=== PATIENT | female | born 1950 | race Caucasian/White ===

== ENCOUNTER 2017-06-29 18:57 | Inpatient (IN) | payer MEDICARE ==
[2017-06-29] MEDS ORDERED: Temazepam CAP* 15 MG PO PRN (21:34)
[2017-06-29] MEDS ORDERED: Acetaminophen TAB* 325 MG PO PRN (21:34)
[2017-06-29] MEDS ORDERED: Heparin VIAL(*) 5000 UNITS/ML VIAL (FIVE THOUSAND) SUBCUT SCH (22:00)
[2017-06-29] MEDS: oxyCODONE/Acetamin 5/325 MG* TAB PO PRN (23:06)
[2017-06-29] MEDS ORDERED: Furosemide IV* 10 MG/ML VIAL (40 MG) IV ONE (23:43)
[2017-06-29] MEDS ORDERED: Heparin VIAL(*) 5000 UNITS/ML VIAL (FIVE THOUSAND) IV SCH (23:45)
[2017-06-29] MEDS ORDERED: Heparin DRIP 25,000 UNITS(*) 25,000 UNITS/500 ML BAG IVPB SCH (23:45)
[2017-06-30] LABS: Hematocrit 31 % (35-47); Hemoglobin 10.2 g/dl (12.0-16.0); Mean Corpuscular HGB Conc 33 g/dl (31-36); Mean Corpuscular Hemoglobin 31 pg (27-31); Mean Corpuscular Volume 92 fL (80-97); Mean Platelet Volume 8 um3 (7.4-10.4); Red Blood Count 3.33 10^6/ul (4.0-5.4); Red Cell Distribution Width 15 % (10.5-15); White Blood Count 5.2 10^3/ul (3.5-10.8)
[2017-06-30 00:09] LABS: BUN/Creatinine Ratio 11.5 (8-20); Calcium 9.4 mg/dL (8.6-10.3); EGFR African American 74.3 (>60); EGFR Non-African American 57.8 (>60); Potassium 3.5 mmol/L (3.5-5.0)
[2017-06-30 00:11] LABS: Troponin I 0.01 ng/mL (<0.04)
[2017-06-30 00:38] LABS: TSH (Thyroid Stimulating Horm) 1.09 mcIU/mL (0.34-5.60)
[2017-06-30] MEDS ORDERED: Iodixanol* (CONTRAST) 320 MG/ML 100 ML SDV IV ONE (01:26)
[2017-06-30 01:38] LABS: Magnesium 1.4 mg/dL (1.9-2.7)
[2017-06-30] MEDS ORDERED: Heparin VIAL(*) 5000 UNITS/ML VIAL (FIVE THOUSAND) IV SCH (03:00)
[2017-06-30] MEDS: Heparin DRIP 25,000 UNITS(*) 25,000 UNITS/500 ML BAG IVPB SCH ×2 (03:11→22:10)
--- NOTE | 2017-06-30 04:04 | HP ---
CC: Dr. Felix* HISTORY AND PHYSICAL: DATE OF ADMISSION: 06/29/17 PRIMARY CARE PROVIDER: Keily Felix MD CHIEF COMPLAINT: Transferred from [facility] for shortness of breath and atrial fibrillation. HISTORY OF PRESENT ILLNESS: Ms. Lawrence is a morbidly obese female with a history of lymphedema, who noted for the past 2 months, she gained approximately 100 pounds of fluid weight. She stated that she had not seen her doctor for that problem. She noted that usually she is short of breath when she is trying to ambulate and usually she is able to walk on few feet to the bathroom and back with the use of 2 canes. In the past month or so, it has been getting more and more difficult to do and she noted shortness of breath without exertion and at rest, worse when she lies down. When she was evaluated at [facility], she was noted to be in atrial fibrillation with controlled ventricular response and in congestive heart failure. She received a dose of Lasix at [facility] and she already stated that her breathing has improved dramatically. She was transferred to our facility for further cardiac evaluation and management. PAST MEDICAL HISTORY: 1. 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 2. Status post right total knee replacement. 3. History of mitral valve prolapse. 4. History of bilateral lymphedema as mentioned above. 5. History of morbid obesity. 6. History of being basically bedbound. MEDICATIONS: Include: 1. Triamterene hydrochlorothiazide 50/25 mg daily. 2. Ranitidine 150 mg daily. 3. Hydrocodone/acetaminophen 7.5/325 mg 1 tablet every 4 hours p.r.n. 4. Benadryl 25 mg on a p.r.n. basis. ALLERGIES: No known drug allergies. FAMILY HISTORY: Positive for father, who of old age in his 80s. Mother with history of blood clots, who in her 50s secondary to what I suspect was due to PE. The patient's one sister had history of breast cancer and uterine cancer and another sister had melanoma and COPD. SOCIAL HISTORY: The patient denies any tobacco, alcohol, or drug use. She is retired and lives by herself. Her in December of this year. Her ambulation is very limited and she walks a few steps with use of 2 canes. As her surrogate, she names her son, Vishnu Lawrence. REVIEW OF SYSTEMS: Please see history of present illness. All the remaining 14 systems were reviewed with the patient and were otherwise negative. PHYSICAL EXAMINATION GENERAL: The patient is a pleasant 66-year-old morbidly obese female with weight that she quoted of 450 pounds. At this point, she does not have her weight checked yet. The patient is in no acute distress. Alert, awake, and oriented x3. VITAL SIGNS: Blood pressure of 139/69, heart rate of 54 and irregular, respiratory rate of 18, oxygen saturation 97% on room air, and temperature of 98.5. HEENT: Head: Atraumatic and normocephalic. Eyes: Pupils are equal, round, and reactive to light and accommodation. Oropharynx clear. Mucosa moist. NECK: Supple. No JVD, no bruits bilaterally. RESPIRATORY: Decreased breath sounds at bilateral bases, otherwise clear. CARDIOVASCULAR: Irregularly irregular rhythm. No murmur. ABDOMEN: Protuberant, soft and nontender. Bowel sounds present in all 4 quadrants. EXTREMITIES: There is +3 pitting pedal edema and lymphedema. Pulses are +2 bilaterally. There is no clubbing or cyanosis. NEUROLOGIC: Speech clear. Cranial nerves II through XII grossly intact. Motor strength is 5/5 bilaterally. SKIN: On evaluation of the skin, dry with no rashes and ecchymotic areas noted. LABORATORY DATA: Obtained at [facility] showed white blood cell count of 5.1, hemoglobin of 10.2, hematocrit of 31, and platelets of 177. Sodium of 138, potassium 3.8, chloride 102, carbon dioxide 27, BUN 12, creatinine 1.1. Liver function tests were unremarkable apart from total protein of 8.3 and albumin of 3.5. Troponin was 0.012. Brain natriuretic peptide was 312. The patient's EKG showed atrial fibrillation with controlled ventricular rate of 62 with flattening of T waves. Portable chest x-ray seen prior to the official Radiology report shows vascular congestion and cardiomegaly. ASSESSMENT AND PLAN: 1. The patient's dyspnea is likely due to congestive heart failure, which also is likely related to atrial fibrillation. The patient's D-dimer was noted to be above 2000 at [facility] and due to that, CT angiogram is going to be obtained to rule out pulmonary embolism. The patient has a strong family history of problems with clots as her mother in her 50s due to "clot problem." 2. For her acute what I suspect is systolic congestive heart failure, the patient is going to be placed on Lasix b.i.d. as well as weights on a daily basis. I will also obtain echocardiogram to see the patient's EF and mitral valve. 3. In regards to atrial fibrillation. The patient has no history of heart disease. At this point, this is rate controlled and rather slow. Apart from diuresis as mentioned above, I will check patient's TSH in the morning as well as magnesium. We discussed the choices of anticoagulation and the patient stated that she has no coverage for medications outpatient and she chose to be placed on Coumadin. Due to her morbid obesity, I did not believe that Lovenox would be a safe alternative. She is going to be placed on heparin drip and Coumadin beginning tomorrow. I will ask Nutrition to see the patient in consultation in regards to being new Coumadin patient. 4. In regards to patient's lymphedema. This is chronic, worsened due to congestive heart failure. We will apply Sean bandages bilaterally on a daily basis. 5. For DVT prophylaxis, the patient is going to be placed on heparin drip as mentioned above. The patient is at high risk of deep venous thrombosis. 6. The patient's total protein is 8.3 and albumin is 3.5 and those were obtained [facility]. I will repeat those levels in the morning and if it indeed is correct that patient has essentially high protein level, it is possible that she has paraproteinemia and serum protein electrophoresis and urine protein electrophoresis may need to be obtained. 7. The patient's code status is full and her surrogate is her son, Vishnu. TIME SPENT: Approximately 65 minutes were spent on the admission of this patient, more than half that time was spent [id number] with the patient during the interview and physical exam. [id number]/[facility] #: [id number] MTDD
[2017-06-30] MEDS: oxyCODONE/Acetamin 5/325 MG* TAB PO PRN ×4 (04:47→20:35)
[2017-06-30 05:12] LABS: Hematocrit 30 % (35-47); Hemoglobin 10.1 g/dl (12.0-16.0); Mean Corpuscular HGB Conc 34 g/dl (31-36); Mean Corpuscular Hemoglobin 31 pg (27-31); Mean Corpuscular Volume 92 fL (80-97); Mean Platelet Volume 9 um3 (7.4-10.4); Red Blood Count 3.28 10^6/ul (4.0-5.4); Red Cell Distribution Width 15 % (10.5-15); White Blood Count 5.5 10^3/ul (3.5-10.8)
[2017-06-30 05:28] LABS: Albumin 3.4 g/dL (3.2-5.2); BUN/Creatinine Ratio 10.1 (8-20); Calcium 9.2 mg/dL (8.6-10.3); EGFR African American 64.2 (>60); EGFR Non-African American 49.9 (>60); Potassium 3.5 mmol/L (3.5-5.0); Total Bilirubin 0.9 mg/dL (0.2-1.0); Total Protein 7.4 g/dL (6.4-8.9)
[2017-06-30] MEDS ORDERED: Furosemide IV* 10 MG/ML 10 ML VIAL (100 MG) IV SCH (08:00)
[2017-06-30] MEDS: Docusate CAP* 100 MG PO SCH ×2 (08:33→20:36)
--- NOTE | 2017-06-30 08:53 | RAD ---
Indication: Shortness of breath. Possible CHF. New onset A. fib. Comparison: Subsequent CT pulmonary angiogram. Technique: Upright AP 2213 hours Report: Obesity limits image quality. Severe cardiomegaly. Prominent ill-defined central pulmonary vasculature with cephalization. Mild perihilar opacities and prominence of the interstitial markings. Based on correlation with CT there are small RIGHT and trace LEFT dependent pleural effusions. Negative for pneumothorax. IMPRESSION: Mild alveolar and interstitial pulmonary edema.
--- NOTE | 2017-06-30 10:06 | RAD ---
INDICATION: New onset atrial fibrillation and shortness of breath. Assess for pulmonary embolism. COMPARISON: June 29, 2017 chest radiograph. TECHNIQUE: Multidetector CT images were obtained from the lung apices to the upper abdomen with 150 mL Visipaque 320 IV contrast. Pulmonary angiogram protocol. Multiplanar reformation including with maximum intensity projection. REPORT: Small RIGHT and trace LEFT dependent pleural effusions with proportional atelectasis. Cardiomegaly contributes to atelectasis at the lung bases. Negative for pneumothorax. Severe cardiomegaly. Negative for pericardial effusion. Normal diameter thoracic aorta with mild atherosclerotic plaque. Negative for aortic dissection. Negative for thoracic lymphadenopathy. Assessment of the pulmonary arteries is mildly limited due to motion artifact and obesity. No compelling filling defects are identified from the main to the subsegmental pulmonary arteries to indicate presence of a pulmonary embolism. Unremarkable Limited images through the upper abdomen. Negative for suspicious osseous lesions. IMPRESSION: 1. Negative for pulmonary embolism. 2. Small RIGHT and trace LEFT dependent pleural effusions with proportional atelectasis. Cardiomegaly contributes to atelectasis at the lung bases. 3. Probable mild interstitial pulmonary edema.
--- NOTE | 2017-06-30 14:01 | PN ---
Subjective Date of Service: 06/30/17 Interval History: Patient seen this morning. Reviewed course leading up to hospitalization. Has had issues with lymphedema for years. Feels that she goes in "cycles" where she will build up fluid and then have a number of days she is urinating frequently/ urgently with improvement in the edema but seems to put on slightly more fluid each cycle. Has not seen her PCP in a few years. Reports she is running low on her home diuretics and has been unable to get a refill because she has not been able to go to her PCP due to mobility issues, she has been rationing the doses of her medications that are left. Has been mostly home-bound. Reports breathing is improved at this time. Explained the AFib and that this could have been ongoing for some time. Understands plans for AC. Family History: Unchanged from Admission Social History: Unchanged from Admission Past Medical History: Unchanged from Admission Objective Active Medications: Acetaminophen (Tylenol Tab*) 650 mg PO Q4H PRN Docusate Sodium (Colace Cap*) 100 mg PO BID YOEL Furosemide (Lasix Iv*) 60 mg IV 0800,1700 [facility] Heparin Sodium (Porcine) (Heparin Vial(*)) 0 units IV .PER PROTOCOL [facility] Heparin Sodium/Dextrose (Heparin Drip 25,000 Units(*)) 25,000 units in 500 mls @ 0 mls/hr IVPB .PER RATE [facility]; Per Protocol Oxycodone/Acetaminophen (Percocet 5/325 Tab*) 1 tab PO Q4H PRN Temazepam (Restoril Cap*) 15 mg PO BEDTIME PRN Warfarin Sodium (Coumadin Tab(*)) 5 mg PO DAILY@1700 [facility] Vital Signs 06/29/17 06/29/17 06/30/17 21:12 23:06 00:05 Temperature 98.5 F 98.3 F Pulse Rate 54 51 Respiratory 18 16 16 Rate Blood Pressure 139/69 138/63 (mmHg) O2 Sat by Pulse 97 98 Oximetry 06/30/17 06/30/17 06/30/17 01:06 03:41 04:47 Temperature 98.5 F Pulse Rate 62 Respiratory 16 22 18 Rate Blood Pressure 128/69 (mmHg) O2 Sat by Pulse 100 Oximetry 06/30/17 06/30/17 06/30/17 06:47 07:36 10:44 Temperature 98.4 F Pulse Rate 51 Respiratory 16 20 16 Rate Blood Pressure 129/63 (mmHg) O2 Sat by Pulse 99 Oximetry 06/30/17 06/30/17 12:00 12:44 Temperature 98.1 F Pulse Rate 66 Respiratory 20 20 Rate Blood Pressure 131/62 (mmHg) O2 Sat by Pulse 99 Oximetry Oxygen Devices in Use Now: Nasal Cannula Appearance: Elderly, F, laying in bed in NAD Eyes: No Scleral Icterus Ears/Nose/Mouth/Throat: Mucous Membranes Moist Neck: NL Appearance and Movements; NL JVP Respiratory: Symmetrical Chest Expansion and Respiratory Effort, - - Absent in bases, mild rales in RLL field Cardiovascular: - - IRIR, bradycardia Abdominal: NL Sounds; No Tenderness; No Distention Lymphatic: No Cervical Adenopathy Extremities: - - B/L LE non-pitting edema, KAMINI wraps in place Neurological: Alert and Oriented x 3 Result Diagrams: 06/30/17 04:38 06/30/17 04:38 Assess/Plan/Problems-Billing Assessment: New onset AFib, likely acute on chronic CHF exacerbation in a 66 yo F with hx of morbid obesity, chronic lymphedema, mitral valve prolapse - Patient Problems (1) Atrial fibrillation Current Visit: Yes Comment: Rate is controlled off of medications. Continue Coumadin. No PE on CTA, will get LE dopplers as D-dimer was significantly elevated. If no clear clot can probably stop heaprin bridge. Echo pending. TSH WNL (2) Acute on chronic congestive heart failure Current Visit: Yes Comment: Suspect some element of cardiac dysfunction causing edema on top of chronic lymphedema issues. Patient has had significant response to IV Lasix, will hold evening dose. Continue strict I/O with guan in place for now, daily weights. (3) Lymphedema Current Visit: Yes Comment: KAMINI wraps, elevation (4) DVT prophylaxis Current Visit: Yes Comment: Heparin Status and Disposition: Inpatient
[2017-06-30] MEDS ORDERED: Warfarin TAB(*) 5 MG PO SCH (17:00)
--- NOTE | 2017-06-30 19:29 | RAD ---
INDICATION: Elevated d-dimer. Lower extremity edema. COMPARISON: No relevant prior exams available on the [facility] [place]. TECHNIQUE: Belcher scale, color Doppler, and spectral analysis of the deep veins of the BILATERAL lower extremities. Vessel compression, phasicity, and augmentation assessed. REPORT: Visualization of the distal segments of the femoral veins as well as the posterior tibial and peroneal veins is limited due to morbid obesity and soft tissue edema. The RIGHT common femoral, great saphenous, profunda femoral, femoral, popliteal popliteal veins are grossly patent. Color flow Doppler demonstrated at the posterior tibial and peroneal veins. Preserved pulsatility documented at the RIGHT posterior tibial veins. The LEFT common femoral, great saphenous, profunda femoral, femoral, and popliteal veins are grossly patent. Color flow Doppler demonstrated at the posterior tibial and peroneal veins. Preserved pulsatility documented at a LEFT posterior tibial vein. IMPRESSION: Limited exam due to morbid obesity and soft tissue edema without compelling evidence for RIGHT or LEFT lower extremity DVT.
[2017-07-01] MEDS: oxyCODONE/Acetamin 5/325 MG* TAB PO PRN ×2 (02:50→08:53)
[2017-07-01 04:02] LABS: Hematocrit 29 % (35-47); Hemoglobin 9.9 g/dl (12.0-16.0); Mean Corpuscular HGB Conc 34 g/dl (31-36); Mean Corpuscular Hemoglobin 31 pg (27-31); Mean Corpuscular Volume 92 fL (80-97); Mean Platelet Volume 8 um3 (7.4-10.4); Red Cell Distribution Width 15 % (10.5-15); White Blood Count 5.4 10^3/ul (3.5-10.8)
[2017-07-01 04:18] LABS: BUN/Creatinine Ratio 10.7 (8-20); Calcium 8.9 mg/dL (8.6-10.3); EGFR African American 68.5 (>60); EGFR Non-African American 53.3 (>60); Magnesium 1.8 mg/dL (1.9-2.7); Potassium 3.3 mmol/L (3.5-5.0)
[2017-07-01] MEDS ORDERED: Magnesium Sulfate 2 GM IV* 2 GM/50 ML BAG IVPB ONE (07:30)
[2017-07-01] MEDS: Docusate CAP* 100 MG PO SCH ×2 (08:43→20:42)
[2017-07-01] MEDS: Potassium Chlor TAB* 20 MEQ TAB.ER PO SCH ×2 (08:52→10:19)
[2017-07-01] MEDS: Furosemide IV* 10 MG/ML 10 ML VIAL (100 MG) IV SCH (08:55)
--- NOTE | 2017-07-01 09:19 | PN ---
Subjective Date of Service: 07/01/17 Interval History: Patient seen this morning. Reports weight loss, legs not feeling much different today. Down 5 kg. Still with orthopnea. No chest pain, palpitations. Reports occasional tingling in B/L fingers, may be related to her cane use as an outpatient. Family History: Unchanged from Admission Social History: Unchanged from Admission Past Medical History: Unchanged from Admission Objective Active Medications: Acetaminophen (Tylenol Tab*) 650 mg PO Q4H PRN PRN Reason: FEVER/PAIN Docusate Sodium (Colace Cap*) 100 mg PO BID [facility] Last Admin: 07/01/17 08:43 Dose: Not Given Furosemide (Lasix Iv*) 60 mg IV DAILY [facility] Last Admin: 07/01/17 08:55 Dose: 60 mg Oxycodone/Acetaminophen (Percocet 5/325 Tab*) 1 tab PO Q4H PRN PRN Reason: Pain Last Admin: 07/01/17 08:53 Dose: 1 tab Pharmacy Profile Note (Coumadin Per Pharmacy*) 1 note FOLLOW UP .PER PHARMACY PROTOC [facility] PRN Reason: Protocol Potassium Chloride (Klor Con Er Tab*) 40 meq PO Q2H [facility] Stop: 07/01/17 10:01 Last Admin: 07/01/17 08:52 Dose: 40 meq Temazepam (Restoril Cap*) 15 mg PO BEDTIME PRN PRN Reason: INSOMNIA Vital Signs 06/30/17 06/30/17 06/30/17 10:44 12:00 12:44 Temperature 98.1 F Pulse Rate 66 Respiratory 16 20 20 Rate Blood Pressure 131/62 (mmHg) O2 Sat by Pulse 99 Oximetry 07/01/17 07/01/17 07/01/17 03:42 04:50 06:43 Temperature 97.1 F Pulse Rate 52 Respiratory 18 18 18 Rate Blood Pressure 126/85 (mmHg) O2 Sat by Pulse 100 Oximetry Oxygen Devices in Use Now: Nasal Cannula - 2L Appearance: Middle-aged, morbidly obese, F, laying in bed in NAD Eyes: No Scleral Icterus Ears/Nose/Mouth/Throat: Mucous Membranes Moist Neck: NL Appearance and Movements; NL JVP Respiratory: Symmetrical Chest Expansion and Respiratory Effort, - - Rales in B/ L bases Cardiovascular: - - Bradycardia, IRIR Abdominal: - - Obese, soft, NTND, BS+ Extremities: - - Diffuse lymphedema Neurological: Alert and Oriented x 3 Lines/Tubes/Other Access: Clean, Dry and Intact Guan Result Diagrams: 07/01/17 03:45 07/01/17 03:45 Assess/Plan/Problems-Billing Assessment: New onset AFib, likely acute on chronic CHF exacerbation in a 66 yo F with hx of morbid obesity, chronic lymphedema, mitral valve prolapse - Patient Problems (1) Atrial fibrillation Current Visit: Yes Comment: Rate is slow off of medications, continue to monitor on tele. Continue Coumadin alone, no need for heparin bridge. Echo pending. TSH WNL (2) Acute on chronic congestive heart failure Current Visit: Yes Comment: Suspect some element of cardiac dysfunction causing edema on top of chronic lymphedema issues. Patient has had significant response to IV Lasix, redose today 60 mg IV. Continue strict I/O with guan in place for now, daily weights. (3) Lymphedema Current Visit: Yes Comment: KAMINI wraps, elevation (4) DVT prophylaxis Current Visit: Yes Comment: Heparin Status and Disposition: Inpatient
[2017-07-01] MEDS: Heparin VIAL(*) 5000 UNITS/ML VIAL (FIVE THOUSAND) SUBCUT SCH ×2 (13:39→20:42)
[2017-07-01] MEDS: HYDROcodone/ACET. 7.5/325 LIQ* 15 ML UDC PO PRN ×3 (13:56→22:45)
[2017-07-01] MEDS ORDERED: Warfarin TAB(*) 5 MG PO ONE (17:00)
[2017-07-02] MEDS: HYDROcodone/ACET. 7.5/325 LIQ* 15 ML UDC PO PRN ×5 (04:04→23:58)
[2017-07-02] MEDS: Heparin VIAL(*) 5000 UNITS/ML VIAL (FIVE THOUSAND) SUBCUT SCH ×3 (05:22→20:31)
[2017-07-02 05:36] LABS: BUN/Creatinine Ratio 10.5 (8-20); Calcium 8.7 mg/dL (8.6-10.3); EGFR Non-African American 47.4 (>60); Potassium 3.8 mmol/L (3.5-5.0)
[2017-07-02] MEDS ORDERED: Perflutren Lipid Microsphere* 3 ML VIAL ONE (08:04)
[2017-07-02] MEDS: Furosemide IV* 10 MG/ML 10 ML VIAL (100 MG) IV SCH (08:29)
[2017-07-02] MEDS: Docusate CAP* 100 MG PO SCH ×2 (08:29→20:31)
--- NOTE | 2017-07-02 09:36 | ECHO ---
Patient: LIDIA WERNER Rec#: [id number] : 1950 Date: 07/02/2017 Age: 66y Height: 160.02 cm / 63.0 in Weight: 172.37 kg / 379.9 lbs Sex: F BSA: 2.54 Room#: 434 Admit Date#: 06/29/2017 Type: Inpatient Referring: Betsy Lao MD Reading: Claudio Fowler MD Digital Research Analyst: Esha Tse RDCS,RDMS CC: Keily Felix MD Transthoracic Echocardiogram Indication: Afib BP: 138/57 HR: 53 Rhythm: A-Fib Findings History: MV prolapse, bilateral lymphedema, morbid obesity Technical Comments: The study is technically limited due to poor acoustic windows. Completed 0845 Left Ventricle: The left ventricular chamber size is normal. Mild concentric left ventricular hypertrophy is observed. Global left ventricular wall motion and contractility are within normal limits. There is normal left ventricular systolic function. The estimated ejection fraction is 55-60%. The assessment of diastolic function is non-diagnostic. Left Atrium: The left atrium is moderately dilated. Right Ventricle: The right ventricular chamber size and systolic function are within normal limits. The right ventricle wall thickness is mildly increased. Right Atrium: The right atrium is mild to moderately dilated. Aortic Valve: There is no evidence of aortic valve thickening. There is no evidence of aortic regurgitation. There is no evidence of aortic stenosis. Mitral Valve: The mitral valve leaflets are mildly thickened. There is a trace of mitral regurgitation. There is no evidence of mitral stenosis. Tricuspid Valve: The tricuspid valve leaflets are normal. There is mild tricuspid regurgitation. No pulmonary hypertension is noted. Pulmonic Valve: The pulmonic valve structure is not well visualized. There is no evidence of pulmonic regurgitation. Pericardium: A trivial pericardial effusion is visualized. The pericardial effusion is seen adjacent to the right atrium. Aorta: The aortic root appears normal. There is no dilatation of the aortic arch. Pulmonary Artery: The main pulmonary artery is not well visualized. Venous: The inferior vena cava is dilated. There is less than 50% respiratory change in the inferior vena cava dimension. Contrast: Definity was used to optimize study. A total of 4 ml was used Conclusions Mild concentric left ventricular hypertrophy is observed. Global left ventricular wall motion and contractility are within normal limits. There is normal left ventricular systolic function. The estimated ejection fraction is 55-60%. The right ventricular chamber size and systolic function are within normal limits. There is no evidence of aortic stenosis. There is a trace of mitral regurgitation. There is mild tricuspid regurgitation. No pulmonary hypertension is noted. A trivial pericardial effusion is visualized. Measurements Name Value Normal Range RVIDd (AP) 2D 2.6 cm (0.9 - 2.6) IVSd (2D) 1.1 cm (0.6 - 1) LVPWd (2D) 1.1 cm (0.6 - 1) LVIDd (2D) 4.7 cm (3.6 - 5.4) LVIDs (2D) 2.7 cm - LV FS (2D) 43 % (25 - 45) Aortic Annulus 2 cm (1.4 - 2.6) Ao root diameter (2D) 3.4 cm (2.1 - 3.5) Ascending Ao 3.1 cm (2.1 - 3.4) Aortic arch 3 cm (1.8 - 3.4) LA dimension (AP) 2D 4 cm (2.3 - 3.8) LAd ISD 4CH 7.8 cm (2.9 - 5.3) LA ISD 4CH W 5 cm (2.5 - 4.5) Name Value Normal Range LA ESV SP 4CH (A/L) 86.18 ml - LA ESV SP 2CH (A/L) 90.54 ml - LA ESV BP (A/L) 91.31 ml - LA ESV BP (A/L) index 36 ml/m2 - LA ESV SP 4CH (MOD) 80.8 ml - LA ESV SP 2CH (MOD) 86.61 ml - Name Value Normal Range MV E-wave Vmax 1.4 m/sec - MV deceleration time 207 msec - LV lateral e' Vmax 0.08 m/sec - LV E:e' lateral ratio 18 ratio - Name Value Normal Range AV Vmax 1.6 m/sec - AV peak gradient 10 mmHg - LVOT Vmax 1.2 m/sec - LVOT peak gradient 6 mmHg - [place] Vmax 0.9 m/sec - Name Value Normal Range MV Vmax 1.5 m/sec - MV VTI 34 cm - MV peak gradient 9 mmHg - MV mean gradient 3 mmHg - MV PHT 75 msec - MVA (PHT) 2.9 cm2 - Name Value Normal Range TR Vmax 2.3 m/sec - TR peak gradient 22 mmHg - RAP 8 mmHg - RVSP 30 mmHg - IVC diameter 3.1 cm - Name Value Normal Range PV Vmax 0.8 m/sec - PV peak gradient 2.6 mmHg -
--- NOTE | 2017-07-02 14:23 | PN ---
Subjective Date of Service: 07/02/17 Interval History: Pt states she is feeling poorly currently due to pain in her hip, legs and back. She states she is not SOB at rest as long as she is not lying flat. She feels she is dropping fluid weight quickly currently but she says that her fluid will come back quickly. She has not had a BM but does not want a laxative as she does not think she can get to a commode quick enough. Additionally she does not want the guan out due to her limited mobility. Family History: Unchanged from Admission Social History: Unchanged from Admission Past Medical History: Unchanged from Admission Objective Active Medications: Acetaminophen (Tylenol Tab*) 650 mg PO Q4H PRN PRN Reason: FEVER/PAIN Hydrocodone Bitart/Acetaminophen (Nortab 7.5/325 Liq*) 5 ml PO Q4H PRN PRN Reason: PAIN Last Admin: 07/02/17 14:09 Dose: 5 ml Docusate Sodium (Colace Cap*) 100 mg PO BID [facility] Last Admin: 07/02/17 08:29 Dose: 100 mg Furosemide (Lasix Iv*) 60 mg IV DAILY [facility] Last Admin: 07/02/17 08:29 Dose: 60 mg Heparin Sodium (Porcine) (Heparin Vial(*)) 5,000 units SUBCUT Q8HR [facility] Last Admin: 07/02/17 14:10 Dose: 5,000 units Pharmacy Profile Note (Coumadin Per Pharmacy*) 1 note FOLLOW UP .PER PHARMACY PROTOC YOEL PRN Reason: Protocol Temazepam (Restoril Cap*) 15 mg PO BEDTIME PRN PRN Reason: INSOMNIA Warfarin Sodium (Coumadin Tab(*)) 4 mg PO 1700 ONE Stop: 07/02/17 17:01 Warfarin Sodium (Coumadin Tab(*)) 2 mg PO 1700 ONE Stop: 07/02/17 17:01 Vital Signs 07/01/17 07/01/17 07/01/17 15:43 15:56 17:35 Temperature 98.0 F Pulse Rate 65 Respiratory 20 18 18 Rate Blood Pressure 108/76 (mmHg) O2 Sat by Pulse 99 Oximetry 07/01/17 07/01/17 07/01/17 19:35 19:48 20:00 Temperature 98.7 F Pulse Rate 65 Respiratory 18 20 Rate Blood Pressure 116/51 (mmHg) O2 Sat by Pulse 99 Oximetry 07/01/17 07/02/17 07/02/17 22:45 00:12 00:45 Temperature 98.6 F Pulse Rate 68 Respiratory 18 18 18 Rate Blood Pressure 116/61 (mmHg) O2 Sat by Pulse 99 Oximetry 07/02/17 07/02/17 07/02/17 04:02 04:04 06:04 Temperature 98.8 F Pulse Rate 59 Respiratory 18 18 18 Rate Blood Pressure 138/57 (mmHg) O2 Sat by Pulse 100 Oximetry 07/02/17 07/02/17 07/02/17 07:05 07:37 08:29 Temperature 97.6 F Pulse Rate 60 Respiratory 16 20 16 Rate Blood Pressure 116/55 (mmHg) O2 Sat by Pulse 100 Oximetry 07/02/17 07/02/17 07/02/17 10:29 11:06 14:09 Temperature 98.9 F Pulse Rate 62 Respiratory 16 20 18 Rate Blood Pressure 112/57 (mmHg) O2 Sat by Pulse 96 Oximetry Oxygen Devices in Use Now: Nasal Cannula - 2L-96% Appearance: Morbidly obese middle aged female sitting up in bed, NAD Eyes: No Scleral Icterus Ears/Nose/Mouth/Throat: Mucous Membranes Moist Respiratory: Symmetrical Chest Expansion and Respiratory Effort, Clear to Auscultation Cardiovascular: NL Sounds; No Murmurs; No JVD, RRR, - - marked LE edema/ lymphedema Abdominal: NL Sounds; No Tenderness; No Distention Extremities: No Clubbing, Cyanosis Skin: No Rash or Ulcers, No Nodules or Sclerosis Neurological: Alert and Oriented x 3 Result Diagrams: 07/01/17 03:45 07/02/17 04:56 Assess/Plan/Problems-Billing Ms Rdz is a 66 yo F with a hx of morbid obesity, chronic lymphedema and mitral valve prolapse who presented to [facility] with c/o SOB and fluid gain and was found to be in afib and likely CHF and she was then sent to [facility] for further evaluation. - Patient Problems (1) Acute on chronic congestive heart failure Current Visit: Yes Status: Acute Code(s): I50.9 - HEART FAILURE, UNSPECIFIED SNOMED Code(s): 73328170 Comment: Likely acute on chronic diastolic CHF in the setting of underlying lymphedema. The patient has lost 18lb since admission. She will get lasix 60mg IV x1 today. Continue to follow I/Os. Repeat BMP tomorrow. She will need to have the guan removed soon though the patient states she does not want it out until she can move better but she refuses to work with PT to try to get out of bed. I am overall concerned about the patient's ability to go home safely. Will continue to try to encourage STR. If she is truly unsafe when/if she works with PT and she continues to refuse STR a capacity eval may be necessary. (2) Atrial fibrillation Current Visit: Yes Status: Acute Code(s): I48.91 - UNSPECIFIED ATRIAL FIBRILLATION SNOMED Code(s): 37350531 Comment: Rate is controlled off of medications. Continue to monitor on tele. Continue Coumadin-pharmacy is dosing but her INR is not yet climbing. (3) Anemia Current Visit: Yes Status: Acute Code(s): D64.9 - ANEMIA, UNSPECIFIED SNOMED Code(s): 237683812 Comment: Unclear the cause. Check iron, B12 levels. Check stool guaiac. (4) Lymphedema Current Visit: Yes Status: Acute Code(s): I89.0 - LYMPHEDEMA, NOT ELSEWHERE CLASSIFIED SNOMED Code(s): 187527917 Comment: Continue KAMINI wraps and elevation. (5) DVT prophylaxis Current Visit: Yes Status: Acute Code(s): SYG7502 - SNOMED Code(s): 562150557 Comment: SQ Heparin bridging to coumadin (6) Full code status Current Visit: Yes Status: Acute Code(s): Z78.9 - OTHER SPECIFIED HEALTH STATUS SNOMED Code(s): 313269595 Status and Disposition: Inpatient
[2017-07-02] MEDS ORDERED: Influenza VAC *QUAD* 2017-18* 0.5 ML SYRINGE IM ONE (17:00)
[2017-07-02] MEDS ORDERED: Warfarin TAB(*) 4 MG PO ONE (17:00)
[2017-07-02] MEDS ORDERED: Warfarin TAB(*) 2 MG PO ONE (17:00)
[2017-07-03] MEDS: Heparin VIAL(*) 5000 UNITS/ML VIAL (FIVE THOUSAND) SUBCUT SCH ×3 (04:51→20:04)
[2017-07-03 05:26] LABS: Ferritin 60.6 ng/mL (11-307)
[2017-07-03] MEDS: HYDROcodone/ACET. 7.5/325 LIQ* 15 ML UDC PO PRN ×5 (06:25→23:43)
[2017-07-03 08:09] LABS: Hematocrit 32 % (35-47); Hemoglobin 10.4 g/dl (12.0-16.0); Mean Corpuscular HGB Conc 33 g/dl (31-36); Mean Corpuscular Hemoglobin 30 pg (27-31); Mean Corpuscular Volume 92 fL (80-97); Mean Platelet Volume 9 um3 (7.4-10.4); Red Blood Count 3.42 10^6/ul (4.0-5.4); Red Cell Distribution Width 15 % (10.5-15); White Blood Count 6.9 10^3/ul (3.5-10.8)
[2017-07-03 08:13] LABS: BUN/Creatinine Ratio 14.3 (8-20); Calcium 9.1 mg/dL (8.6-10.3); EGFR Non-African American 52.1 (>60)
[2017-07-03] MEDS: Docusate CAP* 100 MG PO SCH ×2 (09:02→20:04)
[2017-07-03] MEDS: Furosemide IV* 10 MG/ML 10 ML VIAL (100 MG) IV SCH (09:02)
[2017-07-03] MEDS ORDERED: oxyCODONE TAB* 5 MG TAB PO ONE (14:45)
--- NOTE | 2017-07-03 15:42 | PN ---
Subjective Date of Service: 07/03/17 Interval History: Patient seen and examined at bedside. Patient reports continued pain and has not gotten out of bed because we do not have the proper chair or commode that works for her. She c/o of pain from lying in bed but also from her leg swelling. She states she can lose 60 pounds in two days. She says she has a lower chair at home and a lower bed which would allow her to be able to move by herself. Family History: Unchanged from Admission Social History: Unchanged from Admission Past Medical History: Unchanged from Admission Objective Active Medications: Acetaminophen (Tylenol Tab*) 650 mg PO Q4H PRN Hydrocodone Bitart/Acetaminophen (Nortab 7.5/325 Liq*) 5 ml PO Q4H PRN Docusate Sodium (Colace Cap*) 100 mg PO BID YO[facility] Furosemide (Lasix Iv*) 60 mg IV DAILY Y[facility] Heparin Sodium (Porcine) (Heparin Vial(*)) 5,000 units SUBCUT Q8HR [facility] Pharmacy Profile Note (Coumadin Per Pharmacy*) 1 note FOLLOW UP .PER PHARMACY PROTOC YOEL Temazepam (Restoril Cap*) 15 mg PO BEDTIME PRN Warfarin Sodium (Coumadin Tab(*)) 8 mg PO 1700 ONE 07/03/17 07/03/17 07/03/17 06:25 07:44 08:25 Temperature 97.6 F Pulse Rate 67 Respiratory 18 20 16 Rate Blood Pressure 125/69 (mmHg) O2 Sat by Pulse 100 Oximetry Oxygen Devices in Use Now: Nasal Cannula - 2L-96% Appearance: sitting up in bed, NAD Eyes: No Scleral Icterus, PERRLA Ears/Nose/Mouth/Throat: NL Teeth, Lips, Gums Neck: NL Appearance and Movements; NL JVP Respiratory: Symmetrical Chest Expansion and Respiratory Effort, Clear to Auscultation Cardiovascular: NL Sounds; No Murmurs; No JVD Abdominal: NL Sounds; No Tenderness; No Distention Extremities: - - Marked LE edema Neurological: Alert and Oriented x 3, NL Muscle Strength and Tone Lines/Tubes/Other Access: Clean, Dry and Intact Peripheral IV Nutrition: Taking PO's Result Diagrams: 07/03/17 07:08 07/03/17 07:08 Assess/Plan/Problems-Billing Ms Rdz is a 66 yo F with a hx of morbid obesity, chronic lymphedema and mitral valve prolapse who presented to [facility] with c/o SOB and fluid gain and was found to be in afib and likely CHF and she was then sent to [facility] for further evaluation. - Patient Problems (1) Acute on chronic congestive heart failure Comment: Likely acute on chronic diastolic CHF in the setting of underlying lymphedema. The patient has lost 18lb since admission. Redose Lasix today and follow I/Os. Repeat BMP tomorrow. Patient continues to refuse to work with PT and get out of bed. She has agreed to try again with a bariatric chair. Discussed with her that STR is likely as she has been in bed for multiple days. If she is truly unsafe when/if she works with PT and she continues to refuse STR a capacity eval may be necessary. (2) Lymphedema Comment: Continue KAMINI wraps and elevation. (3) Atrial fibrillation Comment: Rate is controlled off of medications. Continue to monitor on tele. Continue Coumadin per pharmacy. Discontinue telemetry. (4) Anemia Comment: Unclear the cause. Low iron levels and iron saturation. B12 normal. Start iron supplements. (5) DVT prophylaxis Comment: SQ Heparin bridging to coumadin (6) Full code status Status and Disposition: Inpatient. Will likely need STR before going home. Must mobilize with PT first.
[2017-07-03] MEDS ORDERED: Glycerin ADULT SUPP PR ONE (16:01)
[2017-07-03] MEDS ORDERED: Warfarin TAB(*) 4 MG PO ONE (17:00)
[2017-07-04] MEDS: HYDROcodone/ACET. 7.5/325 LIQ* 15 ML UDC PO PRN ×3 (03:50→20:39)
[2017-07-04] MEDS: Heparin VIAL(*) 5000 UNITS/ML VIAL (FIVE THOUSAND) SUBCUT SCH ×3 (05:13→22:17)
[2017-07-04 06:08] LABS: BUN/Creatinine Ratio 16.7 (8-20); Calcium 9.2 mg/dL (8.6-10.3); EGFR African American 64.9 (>60); EGFR Non-African American 50.5 (>60)
[2017-07-04] MEDS: Ferrous Gluconate TAB* 324 MG TAB PO SCH (08:33)
[2017-07-04] MEDS: Docusate CAP* 100 MG PO SCH ×2 (08:33→20:41)
[2017-07-04] MEDS: Furosemide IV* 10 MG/ML 10 ML VIAL (100 MG) IV SCH (08:33)
[2017-07-04] MEDS ORDERED: oxyCODONE TAB* 5 MG TAB PO ONE (09:11)
--- NOTE | 2017-07-04 09:18 | PN ---
Subjective Date of Service: 07/04/17 Interval History: Patient seen and examined at bedside. Patient reports neck pain. States her breathing is improved. Had BM yesterday. Still did not get out of bed yet. She states she wants to go home. She is willing to try to get up with the cardiac chair. Family History: Unchanged from Admission Social History: Unchanged from Admission Past Medical History: Unchanged from Admission Objective Active Medications: Acetaminophen (Tylenol Tab*) 650 mg PO Q4H PRN Hydrocodone Bitart/Acetaminophen (Nortab 7.5/325 Liq*) 5 ml PO Q4H PRN Docusate Sodium (Colace Cap*) 100 mg PO BID [facility] Ferrous Gluconate (Fergon Tab*) 324 mg PO DAILY [facility] Furosemide (Lasix Iv*) 60 mg IV DAILY [facility] Heparin Sodium (Porcine) (Heparin Vial(*)) 5,000 units SUBCUT Q8HR [facility] Lidocaine (Lidoderm 5% Patch*) 1 patch TRANSDERM DAILY [facility] Oxycodone HCl (Roxycodone Tab*) 10 mg PO ONCE ONE Pharmacy Profile Note (Coumadin Per Pharmacy*) 1 note FOLLOW UP .PER PHARMACY PROTOC Y[facility] Pharmacy Profile Note (Lidocaine Patch Remove*) 1 note N/A 2100 YOEL Temazepam (Restoril Cap*) 15 mg PO BEDTIME PRN 07/04/17 07/04/17 07/04/17 03:50 04:05 05:50 Temperature 98.2 F Pulse Rate 98 Respiratory 18 16 18 Rate Blood Pressure 142/69 (mmHg) O2 Sat by Pulse 99 Oximetry Oxygen Devices in Use Now: Nasal Cannula - 2L-96% Appearance: sitting up in bed, NAD Eyes: No Scleral Icterus, PERRLA Ears/Nose/Mouth/Throat: NL Teeth, Lips, Gums Neck: NL Appearance and Movements; NL JVP Respiratory: Symmetrical Chest Expansion and Respiratory Effort, Clear to Auscultation Cardiovascular: NL Sounds; No Murmurs; No JVD, RRR Abdominal: NL Sounds; No Tenderness; No Distention Extremities: - - significant LE lymphedema Skin: No Rash or Ulcers Neurological: Alert and Oriented x 3 Lines/Tubes/Other Access: Clean, Dry and Intact Peripheral IV Nutrition: Taking PO's Result Diagrams: 07/03/17 07:08 07/04/17 05:25 Assess/Plan/Problems-Billing Ms Rdz is a 66 yo F with a hx of morbid obesity, chronic lymphedema and mitral valve prolapse who presented to [facility] with c/o SOB and fluid gain and was found to be in afib and likely CHF and she was then sent to [facility] for further evaluation. - Patient Problems (1) Acute on chronic congestive heart failure Comment: Likely acute on chronic diastolic CHF in the setting of underlying lymphedema. The patient has lost almost 40lb since admission. Redose Lasix today and restart home diurestics tomorrow. Patient agreeable to try to get up out of bed today as she would like to go home. Discussed with her that STR would be necessary if she cannot ambulate safely on her own. If she is truly unsafe when/if she works with PT and she continues to refuse STR a capacity eval may be necessary. (2) Lymphedema Comment: Continue KAMINI wraps and elevation. (3) Atrial fibrillation Comment: Rate is controlled off of medications. Continue Coumadin per pharmacy. (4) Anemia Comment: Low iron levels and iron saturation. B12 normal. Continue iron supplements. (5) DVT prophylaxis Comment: SQ Heparin bridging to coumadin (6) Full code status Status and Disposition: Inpatient. Will likely need STR before going home. Must mobilize with PT first.
[2017-07-04] MEDS: Lidocaine PATCH 5%* 1 PATCH TRANSDERM SCH (09:49)
[2017-07-04] MEDS ORDERED: Warfarin TAB(*) 4 MG PO ONE (17:00)
[2017-07-04] MEDS: Lidocaine Patch REMOVE* 1 NOTE MISC SCH (20:49)
[2017-07-05] MEDS: HYDROcodone/ACET. 7.5/325 LIQ* 15 ML UDC PO PRN ×4 (04:41→20:47)
[2017-07-05 05:08] LABS: BUN/Creatinine Ratio 19.4 (8-20); Calcium 9.3 mg/dL (8.6-10.3); EGFR African American 68.5 (>60); EGFR Non-African American 53.3 (>60); Potassium 3.9 mmol/L (3.5-5.0)
[2017-07-05] MEDS: Heparin VIAL(*) 5000 UNITS/ML VIAL (FIVE THOUSAND) SUBCUT SCH ×3 (05:31→20:46)
[2017-07-05] MEDS: Docusate CAP* 100 MG PO SCH ×3 (08:21→21:26)
[2017-07-05] MEDS: Lidocaine PATCH 5%* 1 PATCH TRANSDERM SCH (08:22)
[2017-07-05] MEDS: Ferrous Gluconate TAB* 324 MG TAB PO SCH (08:22)
[2017-07-05] MEDS: Furosemide TAB* 20 MG PO SCH (08:22)
[2017-07-05] MEDS ORDERED: Warfarin TAB(*) 4 MG PO ONE (17:00)
[2017-07-05] MEDS ORDERED: oxyCODONE TAB* 5 MG TAB PO ONE (17:03)
[2017-07-05] MEDS ORDERED: oxyCODONE TAB* 5 MG TAB ONE (17:07)
--- NOTE | 2017-07-05 17:10 | PN ---
Subjective Date of Service: 07/05/17 Interval History: Patient seen and examined at bedside. Patient OOB in to the chair with PT again. Patient is agreeable to rehab. She states any movement is very painful. Family History: Unchanged from Admission Social History: Unchanged from Admission Past Medical History: Unchanged from Admission Objective Active Medications: Acetaminophen (Tylenol Tab*) 650 mg PO Q4H PRN Hydrocodone Bitart/Acetaminophen (Nortab 7.5/325 Liq*) 5 ml PO Q4H PRN Docusate Sodium (Colace Cap*) 100 mg PO BID YO[facility] Ferrous Gluconate (Fergon Tab*) 324 mg PO DAILY Y[facility] Furosemide (Lasix Tab*) 20 mg PO DAILY Y[facility] Heparin Sodium (Porcine) (Heparin Vial(*)) 5,000 units SUBCUT Q8HR [facility] Lidocaine (Lidoderm 5% Patch*) 1 patch TRANSDERM DAILY Y[facility] Oxycodone HCl (Roxycodone Tab*) 5 mg PO ONCE ONE Pharmacy Profile Note (Coumadin Per Pharmacy*) 1 note FOLLOW UP .PER PHARMACY PROTOC YO[facility] Pharmacy Profile Note (Lidocaine Patch Remove*) 1 note N/A 2100 YOEL Temazepam (Restoril Cap*) 15 mg PO BEDTIME PRN Vital Signs 07/04/17 07/04/17 07/04/17 18:18 19:51 20:09 Temperature 98.5 F Pulse Rate 72 Respiratory 18 18 18 Rate Blood Pressure 140/67 (mmHg) O2 Sat by Pulse 99 Oximetry 07/04/17 07/04/17 07/05/17 20:39 22:39 01:00 Temperature 98.0 F Pulse Rate 76 Respiratory 18 16 22 Rate Blood Pressure 120/56 (mmHg) O2 Sat by Pulse Oximetry 07/05/17 07/05/17 07/05/17 04:41 06:41 07:27 Temperature 99.5 F Pulse Rate 81 Respiratory 16 18 20 Rate Blood Pressure 139/77 (mmHg) O2 Sat by Pulse 100 Oximetry 07/05/17 07/05/17 07/05/17 08:00 12:13 14:13 Temperature Pulse Rate Respiratory 18 18 16 Rate Blood Pressure (mmHg) O2 Sat by Pulse Oximetry 07/05/17 16:57 Temperature Pulse Rate Respiratory 16 Rate Blood Pressure (mmHg) O2 Sat by Pulse Oximetry Oxygen Devices in Use Now: Nasal Cannula - 2L-96% Appearance: laying in bed, NAD Eyes: No Scleral Icterus, PERRLA Ears/Nose/Mouth/Throat: NL Teeth, Lips, Gums, Mucous Membranes Moist Neck: NL Appearance and Movements; NL JVP Respiratory: Symmetrical Chest Expansion and Respiratory Effort, Clear to Auscultation Cardiovascular: NL Sounds; No Murmurs; No JVD, RRR Abdominal: NL Sounds; No Tenderness; No Distention Extremities: - - marked LE edema Neurological: Alert and Oriented x 3, NL Muscle Strength and Tone Lines/Tubes/Other Access: Clean, Dry and Intact Peripheral IV Nutrition: Taking PO's Result Diagrams: 07/03/17 07:08 07/05/17 04:45 Assess/Plan/Problems-Billing Ms Rdz is a 66 yo F with a hx of morbid obesity, chronic lymphedema and mitral valve prolapse who presented to [place] [facility] with c/o SOB and fluid gain and was found to be in afib and likely CHF and she was then sent to [facility] [place] further [place]. - Patient Problems (1) Acute on chronic congestive heart failure Comment: Likely acute on chronic diastolic CHF in the setting of underlying lymphedema. The patient has lost almost 40lb since admission. Daily Lasix started this AM. Per PT patient not safe to go home. Patient is agreeable to STR - possible tomorrow. (2) Lymphedema Comment: Continue KAMINI wraps and elevation. (3) Atrial fibrillation Comment: Rate is controlled off of medications. Continue Coumadin per pharmacy. (4) Anemia Comment: Low iron levels and iron saturation. B12 normal. Continue iron supplements. (5) DVT prophylaxis Comment: SQ Heparin bridging to coumadin (6) Full code status Status and Disposition: Inpatient. Plan for subacute rehab likely tomorrow.
[2017-07-05] MEDS: Lidocaine Patch REMOVE* 1 NOTE MISC SCH (21:27)
[2017-07-06] MEDS: HYDROcodone/ACET. 7.5/325 LIQ* 15 ML UDC PO PRN ×2 (03:17→13:27)
[2017-07-06] MEDS: Heparin VIAL(*) 5000 UNITS/ML VIAL (FIVE THOUSAND) SUBCUT SCH ×2 (05:01→14:28)
[2017-07-06 08:53] VITALS: BP 128/52
[2017-07-06] MEDS: Lidocaine PATCH 5%* 1 PATCH TRANSDERM SCH (09:14)
[2017-07-06] MEDS: Docusate CAP* 100 MG PO SCH (09:14)
[2017-07-06] MEDS: Ferrous Gluconate TAB* 324 MG TAB PO SCH (09:14)
[2017-07-06] MEDS: Furosemide TAB* 20 MG PO SCH (09:20)
--- NOTE | 2017-07-06 10:49 | DCNOTE ---
Subjective Date of Service: 07/06/17 Interval History: Patient seen and examined at bedside. Patient denies SOB. Pain relatively controlled. Weight today reflects gain but have asked to repeat the weight. Patient agreeable to discharge to [facility]. Family History: Unchanged from Admission Social History: Unchanged from Admission Past Medical History: Unchanged from Admission Objective Active Medications: Acetaminophen (Tylenol Tab*) 650 mg PO Q4H PRN Hydrocodone Bitart/Acetaminophen (Nortab 7.5/325 Liq*) 5 ml PO Q4H PRN Docusate Sodium (Colace Cap*) 100 mg PO BID [facility] Ferrous Gluconate (Fergon Tab*) 324 mg PO DAILY [facility] Furosemide (Lasix Tab*) 20 mg PO DAILY [facility] Heparin Sodium (Porcine) (Heparin Vial(*)) 5,000 units SUBCUT Q8HR [facility] Lidocaine (Lidoderm 5% Patch*) 1 patch TRANSDERM DAILY [facility] Pharmacy Profile Note (Coumadin Per Pharmacy*) 1 note FOLLOW UP .PER PHARMACY PROTOC [facility] Pharmacy Profile Note (Lidocaine Patch Remove*) 1 note N/A 2100 [facility] Temazepam (Restoril Cap*) 15 mg PO BEDTIME PRN Vital Signs 07/05/17 07/05/17 07/05/17 12:13 14:13 15:09 Temperature 98.6 F Pulse Rate 65 Respiratory 18 16 20 Rate Blood Pressure 120/53 (mmHg) O2 Sat by Pulse 98 Oximetry 07/05/17 07/05/17 07/05/17 16:57 17:08 18:57 Temperature Pulse Rate Respiratory 16 16 16 Rate Blood Pressure (mmHg) O2 Sat by Pulse Oximetry 07/05/17 07/05/17 07/05/17 19:08 19:59 20:00 Temperature 99.0 F Pulse Rate 53 Respiratory 16 16 16 Rate Blood Pressure 107/54 (mmHg) O2 Sat by Pulse 95 Oximetry 07/05/17 07/05/17 07/06/17 20:47 22:47 00:00 Temperature 99.0 F Pulse Rate 80 Respiratory 16 16 16 Rate Blood Pressure 157/55 (mmHg) O2 Sat by Pulse 96 Oximetry 07/06/17 07/06/17 07/06/17 03:17 05:06 05:13 Temperature 98.6 F Pulse Rate 73 Respiratory 16 16 16 Rate Blood Pressure 141/62 (mmHg) O2 Sat by Pulse 95 Oximetry 07/06/17 07:51 Temperature 97.8 F Pulse Rate 66 Respiratory 20 Rate Blood Pressure 128/52 (mmHg) O2 Sat by Pulse 96 Oximetry Oxygen Devices in Use Now: Nasal Cannula - 2L-96% Appearance: sitting up in bed, NAD Eyes: No Scleral Icterus, PERRLA Ears/Nose/Mouth/Throat: NL Teeth, Lips, Gums Neck: NL Appearance and Movements; NL JVP Respiratory: Symmetrical Chest Expansion and Respiratory Effort, Clear to Auscultation Cardiovascular: NL Sounds; No Murmurs; No JVD, - - irregular Abdominal: NL Sounds; No Tenderness; No Distention Extremities: - - LE edema seems improved Skin: No Rash or Ulcers Neurological: Alert and Oriented x 3, NL Muscle Strength and Tone Lines/Tubes/Other Access: Clean, Dry and Intact Peripheral IV Nutrition: Taking PO's Result Diagrams: 07/03/17 07:08 07/05/17 04:45 Assess/Plan/Problems-Billing Ms Rdz is a 66 yo F with a hx of morbid obesity, chronic lymphedema and mitral valve prolapse who presented to [facility] with c/o SOB and fluid gain and was found to be in afib and likely CHF and she was then sent to [facility] for further evaluation. - Patient Problems (1) Acute on chronic congestive heart failure (2) Lymphedema (3) Atrial fibrillation (4) Anemia (5) DVT prophylaxis (6) Full code status Status and Disposition: Inpatient. Stable to be discharged to [facility].
--- NOTE | 2017-07-06 12:58 | DS ---
CC: Dr. Keily Felix * DISCHARGE SUMMARY: DATE OF ADMISSION: 06/29/17 DATE OF DISCHARGE: 07/06/17 PRIMARY CARE PHYSICIAN: Keily Felix MD. ATTENDING PHYSICIAN: Dr. Charly Hernandez * (report dictated by Olivia Pineda NP). PRIMARY DIAGNOSES: 1. Acute on chronic congestive heart failure. 2. Bilateral lymph edema. 3. New onset atrial fibrillation. 4. Chronic iron-deficiency anemia. STUDIES WHILE IN THE HOSPITAL: 1. CT of the chest, 06/29/17, negative for pulmonary embolism. Small right and trace left dependent pleural effusions with atelectasis. Cardiomegaly contributes to atelectasis of the lung base. Probable mild interstitial pulmonary edema. 2. Chest x-ray, 06/27/17, mild alveolar interstitial pulmonary edema. 3. 06/30/17, bilateral lower extremity Doppler, limited exam due to morbid obesity and soft tissue edema without compelling evidence for right or left lower extremity DVT. 4. Transthoracic echocardiogram, 07/02/17, mild concentric left ventricular hypertrophy is observed. Global left ventricular wall motion and contractility are within normal limits. There is normal left ventricular systolic function. The estimated ejection fraction is 55% to 60%. The right ventricular chamber size and systolic function are within normal limits. There is no evidence of aortic stenosis. There is trace mitral regurgitation. There is mild tricuspid regurgitation. No pulmonary hypertension is noted. Trivial pericardial effusion is visualized. MEDICATIONS AT THE TIME OF DISCHARGE: New medication: 1. Colace 100 mg oral twice daily. 2. Fergon 324 mg oral daily. 3. Lasix 20 mg oral daily. 4. Lidoderm 1 patch transdermal daily, remove daily at 9 p.m. 5. Restoril 50 mg at bedtime as needed. 6. Warfarin 8 mg oral at 1700. 7. [place] 10/325, one tablet every 4 hours as needed. 8. Glycerin rectal every day as needed for constipation. 9. Zantac 1 tablet oral daily. The patient is instructed to discontinue Dyazide, hydrocodone 7.5/25, and Benadryl 25 mg. HISTORY OF PRESENT ILLNESS AND HOSPITAL COURSE: Ms. Lawrence is a morbidly obese female with a history of lymphedema, who presented to [place] emergency room and was transferred here from there for approximately 100-pound weight gain. In addition, the patient was found to be in atrial fibrillation as well as congestive heart failure. She was given a dose of Lasix and she was transferred to [facility] for further cardiac evaluation and management. The patient was admitted to the telemetry floor. The patient was diuresed with IV Lasix. She had a transthoracic echocardiogram that showed normal systolic function. It was not a good evaluation of her diastolic function. With the IV Lasix, the patient's breathing improved significantly. She was transitioned to 20 mg of Lasix daily. During her hospitalization her weight went from 378 pounds to 333 pounds on the day of discharge. For her atrial fibrillation, she was rate controlled. Her TSH was normal. No rate control agents were necessary. She calculated out to have a CHADS-VASc score of 2 given her age and gender. For this reason, the patient was started on anticoagulation. She is currently on warfarin and her INR is 1.6. She should continue on DVT prophylactic dose of Lovenox until her INR is therapeutic. She should have an INR checked on Sunday. She was also noted during this hospitalization to be slightly anemic with a hemoglobin of 10. B12 and folic acid were checked, which were normal. She was found to have a mild iron-deficiency anemia and she was stated on iron supplements. Her mobility was significantly decreased with her significant weight gain. Initially, she was quite resistant in working with Physical Therapy due to her pain and also our equipment, unfortunately we were unable to locate a bariatric chair in order for her to be comfortable when out of bed. Even with the chair we had she required a 3+ assistance and for this reason we have sought out subacute rehab for her. Today, she is stable for discharge. Her vitals are as follows: Temperature 98.6, heart rate 66, respiratory rate 20 , blood pressure 120/52. At this point, she is stable for discharge. She has been transitioned to oral Lasix, which we substituted instead of the Dyazide she was taking prior to her admission. DISCHARGE PLAN: The patient is discharged on a heart-healthy, no-caffeine diet. She is weightbearing as tolerated. She currently has a Kaminski catheter, this is just for her decreased mobility and this should be removed this afternoon upon arrival to the [facility]. The patient needs to have an INR checked on Sunday and prophylactic dose of Lovenox should be continued until her INR is greater than 2. The patient should return to the hospital if she experiences any high rate AFib, shortness of breath or significant weight gain. This is a summarized report of a complex medical history and hospital stay. For more details, please see the entire medical record. TIME SPENT: Time for this discharge was 60 minutes and 35 minutes were spent with the patient and her son discussing the discharge plan and followup instructions. CONDITION ON DISCHARGE: Stable. OLIVIA PINEDA NP [id number]/CPS #: [id number] [place]
[2017-07-06] MEDS ORDERED: oxyCODONE TAB* 5 MG TAB PO ONE (16:27)
[2017-07-06] MEDS ORDERED: Warfarin TAB(*) 4 MG PO ONE (17:00)
== END 2017-07-06 16:47 | disposition home health service (06) | DRG 308 ==
LOC: MEDTELE 21:00 → OBSVTOIN 21:34 → MEDTELE 21:34
PROVIDERS: ADMIT Internal Medicine; ATTEND Internal Medicine
PROC: 3E0234Z Introduction of Serum, Toxoid and Vaccine into Muscle, Percutaneous Approach (ICD-10-PCS; principal; 2017-07-02)
DX: I48.91 Unspecified atrial fibrillation (principal); I50.33 Acute on chronic diastolic (congestive) heart failure; Z68.44 Body mass index [BMI] 60.0-69.9, adult; E66.01 Morbid (severe) obesity due to excess calories; I08.1 Rheumatic disorders of both mitral and tricuspid valves; Z79.01 Long term (current) use of anticoagulants; Z96.651 Presence of right artificial knee joint; Z80.3 Family history of malignant neoplasm of breast; Z80.8 Family history of malignant neoplasm of other organs or systems; Z83.6 Family history of other diseases of the respiratory system; Z23 Encounter for immunization; D50.8 Other iron deficiency anemias
CPT/HCPCS: 36415; 71010; 71275; 80048; 80053; 82607; 82728; 83540; 83550; 83735; 83880; 84443; 84484; 84520; 85025; 85027; 85610; 85730; 90686; 93005; 93306; 93970; A9270-GY; C8929; J1644; J1940; J3475; Q9967

== ENCOUNTER 2019-09-25 22:01 | Inpatient (IN) | payer MEDICARE ==
[2019-09-26] MEDS ORDERED: Famotidine TAB* 20 MG PO PRN (00:21)
[2019-09-26] MEDS ORDERED: HYDROcodone/ACETAM 10-325 MG(NF) 1 TAB PO PRN (00:21)
[2019-09-26 00:51] LABS: ABS Eosinophils 0.1 10^3/ul (0-0.6); ABS Lymphocytes 0.5 10^3/ul (1.0-4.8); ABS Monocytes 0.5 10^3/ul (0-0.8); ABS Neutrophils 3.3 10^3/ul (1.5-7.7); Eosinophil % 2.3 %; Hematocrit 33 % (35-47); Hemoglobin 10.9 g/dL (12.0-16.0); Lymphocyte % 10.7 %; Mean Corpuscular HGB Conc 33 g/dL (31-36); Mean Corpuscular Hemoglobin 31 pg (27-31); Mean Corpuscular Volume 94 fL (80-97); Mean Platelet Volume 8.4 fL (7.4-10.4); Nucleated Red Blood Cells % 0.1; Platelet Count 180 10^3/uL (150-450); Red Blood Count 3.54 10^6 /uL (3.70-4.87); Red Cell Distribution Width 18 % (10-15); White Blood Count 4.4 10^3/uL (3.5-10.8)
[2019-09-26 01:07] LABS: BUN/Creatinine Ratio 23.8 (8-20); C Reactive Protein 71.33 mg/L (<8.01); Calcium 8.8 mg/dL (8.6-10.3); EGFR African American 81.1 (>60); Magnesium 1.7 mg/dL (1.9-2.7)
[2019-09-26 01:36] LABS: INR 5.42 (0.82-1.09); TSH (Thyroid Stimulating Horm) 1.72 mcIU/mL (0.34-5.60)
[2019-09-26] MEDS: Lidocaine PATCH 5%* 1 PATCH TRANSDERM SCH (01:57)
[2019-09-26] MEDS: Hydrocodone/Acetamin 10/325 1 TAB PO PRN ×2 (02:05→20:28)
[2019-09-26 02:25] LABS: Urine Appearance Clear; Urine Bilirubin Negative (Negative); Urine Blood 1+ (Negative); Urine Color Amber; Urine Glucose Negative (Negative); Urine Ketones Trace (Negative); Urine Nitrite Negative (Negative); Urine Protein 2+(100 mg/dL) (Negative); Urine Specific Gravity 1.029 (1.010-1.030); Urine Urobilinogen Negative (Negative)
[2019-09-26 02:26] LABS: Urine Bacteria Absent (Absent); Urine Red Blood Cell 1+(3-5/hpf) (Absent); Urine Squamous Epithelial Cell Present (Absent); Urine White Blood Cell Trace(0-5/hpf) (Absent)
[2019-09-26] MEDS ORDERED: Furosemide IV* 10 MG/ML VIAL (40 MG) IV ONE (03:48)
--- NOTE | 2019-09-26 03:48 | HP ---
History of Present Illness - History of Present Illness History of Present Illness: 68 yo female with hx of Afib and CHF was a transfer [facility] with acute hypoxemic respiratory failure. She has been dyspneic for a a few weeks now. Pt saw her PCP in june who put her on lasix. She stopped taking it because she didnt appreciate how often she was going to the bathroom and she said she started to feel dizzy. Gradually her SOB started to get worse. She went to the outside facility for easy bruising. They found her hypoxemic on RA and put her on 2L. Pt said her functional status has been poor lately because of how short of breath she is. Does not have any chest pain. She ambulates with a walker at baseline and is able to go to the bathroom on her own. ROS: vaginal spotting, easy bruising - Past Medical History Cardiac: AFIB, CHF Heme/Onc: Iron deficiency anemia - Past Surgical History Past Surgical History: None - Past Family History Family History: CAD, Hyperlipidemia - Past Social History Smoke: Quit Alcohol: Rare Drugs: None Lives: With Family Review of Systems - Measurements Intake and Output: Intake and Output Last 24 Hours 09/23/19 09/24/19 09/25/19 09/26/19 06:59 06:59 06:59 06:59 Weight 392 lb 1.6 oz - Review of Systems Constitutional Symptoms: Positive: Weight Gain, Weakness, Fatigue Negative: Weight Loss, Fever, Night Sweats, Unexplained Falls, Other Dermatology: Negative: Normal, Rash, Skin Lesions, Cancer, Skin Lumps, Other HEENT: Negative: Normal, Change in Hearing, Vertigo, Dental Problems, Tinnitus, Sinus Problem, Other Eyes: Negative: Normal, Change in Vision, Double Vision, Eye Pain, Glaucoma, Cataract, Contacts or Glasses, Other Thyroid: Negative: Normal, Goiter, Thyroid Nodule, Cold Intolerance, Heat Intolerance , Sweatiness, Tremor, Frequent Defecation, Constipation, Palpitations, Primary Hypothyroidism, Primary Hyperthyroidism, Weight Loss, Weight Gain, Change in Skin/Hair, Change in Menstruation, Radiation Exposure, Other Pulmonary: Negative: Normal, Cough, Sputum, Hemoptysis, Wheezing, Respiratory Distress, Shortness of Breath, COPD, Asthma, Exercise Intolerance, Home Oxygen, Other Cardiology: Negative: Normal, Chest Pain, Shortness of Breath, Palpitations, Swelling of Ankles, Peripheral Vascular Dis, Edema, Faintness, Syncope, Claudication, Proximal NocturnalDyspnea, Orthopnoea, Other Gastroenterology: Negative: Normal, Abdominal Pain, Nausea, Vomiting, Anorexia, Indigestion, Difficulty Swallowing, Heartburn, Constipation, Diarrhea, Blood in Stools, Change in Bowel Habits, Haematemesis, Melena, Other Genital - Urinary: Positive: Hematuria Negative: Normal, Dysuria, Polyuria, Nocturia, Other Genitourinay - Female: Positive: Vaginal Discharge Musculoskeletal: Negative: Joint Pain, Joint Stiffness, Arthritis, Osteoporosis, Low Back Pain , Sciatica, Joint Deformities, Kyphoscoliosis, Other Endocrinology: Negative: Normal, Thyroid Problems, Adrenal Problems, Gonadal Problems, Family Hx Endocrine Disorders, Obesity, Diabetes Mellitus, Hyperglycemia, Hx Hypoglycemia, Diabetic Foot Ulcers, Calluses, Hirsutism, Menstrual Abnormalities , Polydipsia, Polyuria, Gonadal Problems, Gynecomastia, Pituitary disease, Other Hematologic/Lymphatic: Positive: Easy Bruising Negative: Anemia, Hx Leukemia, Hx Lymphoma, Use of Anticoagulant, Use of Antiplatelet Drugs, Other Neurology: Negative: Normal, Headache, Migraines, Change in Vision, Diplopia, Dizziness , Change in Balancing, Change in Coordination, Change in Memory, Change in Speech, Change in Sphincter Function, Change in Walking, Numbness\Paresthesiae, Unexplained Weakness, Hx of Stroke\TIA, Hx of Seizures, Other Psychiatry: Positive: Anxiety Negative: Normal, Depression, Depressed Mood, Anhedonia, Sexual Dysfunction, Weight Change, Guilt Feelings, Tearfulness, Unusual Fatigue, Unusual Anxiety, Suicidal Ideation, Hypomania, Eating Disorders, Other Allergic/Immunologic: Negative: Hx Anaphylaxis, Hx Angioedema, Hx Environmental, Hx Seasonal, Asthma, Hx HIV, Immunocompromise, Swollen Glands LymphNodes, Other Objective Active Medications: Hydrocodone Bitart/Acetaminophen ([place] 10/325 (Nf)) 1 tab PO Q4H PRN PRN Reason: PAIN Last Admin: 09/26/19 02:05 Dose: 1 tab Docusate Sodium (Colace Cap*) 100 mg PO BID [facility] Famotidine (Pepcid Tab*) 20 mg PO DAILY PRN; Protocol PRN Reason: gi ulcer Lidocaine (Lidoderm 5% Patch*) 1 patch TRANSDERM DAILY [facility] Last Admin: 09/26/19 01:57 Dose: 1 patch Pharmacy Profile Note (Lidocaine Patch Remove*) 1 note PATCH OFF 2100 [facility] Vital Signs - 8 hr 09/25/19 09/26/19 23:06 02:05 Temperature 96.8 F Pulse Rate 69 Respiratory 20 20 Rate Blood Pressure 146/65 (mmHg) O2 Sat by Pulse 100 Oximetry Oxygen Devices in Use Now: Nasal Cannula Appearance: morbidly obese Ears/Nose/Mouth/Throat: NL Teeth, Lips, Gums, Mucous Membranes Moist Neck: NL Appearance and Movements; NL JVP, Trachea Midline Respiratory: Symmetrical Chest Expansion and Respiratory Effort, - - limited due to body habitus Cardiovascular: NL Sounds; No Murmurs; No JVD Abdominal: NL Sounds; No Tenderness; No Distention Lymphatic: No Cervical Adenopathy Extremities: - - 2+ edema Neurological: Alert and Oriented x 3 Result Diagrams: 09/26/19 00:43 09/26/19 00:43 Assess/Plan/Problems-Billing Assessment: - Patient Problems (1) Acute hypoxemic respiratory failure Current Visit: Yes Status: Acute Code(s): J96.01 - ACUTE RESPIRATORY FAILURE WITH HYPOXIA SNOMED Code(s): 076381027 Comment: progressive dyspnea at home. No fever, has a baseline cough that has not gotten wrose. This is likely secondary to CHF exacerbation. Pt admits to drinking plenty of fluids at home and she stops taking her lasix because she pees too frequently on it Will order a CXR and a BNP lasix 40 IV (2) Coagulopathy Current Visit: Yes Status: Acute Comment: from her warfarin hold warfarin oral vit K due to vaginal spotting and ecchymosis (3) Acute on chronic congestive heart failure Current Visit: No Status: Acute Code(s): I50.9 - HEART FAILURE, UNSPECIFIED SNOMED Code(s): 955663984 Comment: Likely acute on chronic diastolic CHF in the setting of underlying lymphedema. repeat echo (4) Atrial fibrillation Current Visit: No Status: Acute Code(s): I48.91 - UNSPECIFIED ATRIAL FIBRILLATION SNOMED Code(s): 17929694 Comment: Rate is controlled off of medications. holding warfarin due to subtherapeutic INR (5) DVT prophylaxis Current Visit: No Status: Acute Code(s): AMF7066 - SNOMED Code(s): 549420626 Comment: INR 2-3 (6) Full code status Current Visit: No Status: Acute Code(s): Z78.9 - OTHER SPECIFIED HEALTH STATUS SNOMED Code(s): 397125406 (7) Lymphedema Current Visit: No Status: Acute Code(s): I89.0 - LYMPHEDEMA, NOT ELSEWHERE CLASSIFIED SNOMED Code(s): 273776596 Comment: Continue KAMINI wraps and elevation. lasix
[2019-09-26] MEDS ORDERED: Phytonadione Oral Solution* 5 MG/25 ML UDC PO ONE (03:53)
[2019-09-26] MEDS ORDERED: Magnesium Sulfate 1 GM IV* 1 GM/100 ML BAG IV ONE (03:54)
[2019-09-26] MEDS: Docusate CAP* 100 MG PO SCH ×2 (09:01→20:28)
[2019-09-26] MEDS ORDERED: Temazepam CAP* 15 MG PO PRN (10:50)
[2019-09-26] MEDS ORDERED: Furosemide IV* 10 MG/ML 2 ML VIAL (20 MG) IV ONE (10:53)
[2019-09-26] MEDS: Lidocaine Patch REMOVE* 1 NOTE MISC PATCH OFF SCH (13:29)
--- NOTE | 2019-09-26 16:01 | ECHO ---
*[facility]* [place] [address] Fax #: [phone] Transthoracic Echocardiogram Patient: Evon Lawrence : 1950 Study Date: 09/26/2019 Age: 68 Gender: F HR: 58 bpm Height: 63 in /160 cm BSA: 2.57 m^2 Weight: 388.2 lb /176.5 kg BMI: 68.9 kg/m^2 *Practice Lead: Esha Smith [facility] *Referring Physician: * Vanessa Alberts *Reading Physician: * Abraham Peterson MD Indications: SOB. History: Atrial fibrillation. Congestive heart failure. Conclusions Summary: - Left ventricle: The cavity size is normal. Wall thickness is mildly increased. Systolic function is normal. The estimated ejection fraction is 55-60%. Study is nondiagnostic to comment on segmental wall motion abnormalities - Right ventricle: The cavity size is dilated and dysfunction, off-axis imaging make qualitative estimation difficult. - Ventricular septum: There is mild septal flattening of the interventricular septum most likely consistent with RV volume and/or pressure overload. A recent EKG is not available for review to correlate with any conduction system disease. - Left atrium: The atrium is dilated, difficult to quantify or quality - No hemodynamically significant valvular abnormalities noted. - Mild pulmonary hypertension, could be underestimated (may be worse) Recommendations: Tecnically difficult study. Study data: Transthoracic echocardiogram. Procedure: Transthoracic echocardiography was performed. Image quality was poor in parasternal and subcostal views. Complete 2D, spectral Doppler, and color flow Doppler. Location: Bedside. Patient status: Inpatient. Patient room number: 443 02. Rhythm: Atrial fibrillation. Findings Left ventricle: The cavity size is normal. Wall thickness is mildly increased. Systolic function is normal. The estimated ejection fraction is 55-60%. Study is nondiagnostic to comment on segmental wall motion abnormalities Left ventricular diastolic function parameters are indeterminate. Right ventricle: The cavity size is dilated and dysfunction, off-axis imaging make qualitative estimation difficult. Ventricular septum: There is mild septal flattening of the interventricular septum most likely consistent with RV volume and/or pressure overload. A recent EKG is not available for review to correlate with any conduction system disease. Left atrium: The atrium is dilated, difficult to quantify or quality Right atrium: The atrium is dilated. Mitral valve: The leaflets are normal thickness. There is no evidence of stenosis. There is no significant regurgitation. Aortic valve: Not well visualized. There is no evidence of stenosis. There is no significant regurgitation. Tricuspid valve: The leaflets are normal thickness. There is no evidence of stenosis. There is mild regurgitation. Pulmonic valve: Not well visualized. There is no significant regurgitation. Aorta: Aortic root: The aortic root is poorly visualized. Aortic arch: The aortic arch is appears normal. Pericardium: There is no significant pericardial effusion. Pulmonary arteries: Not well visualized. Systemic veins: Inferior vena cava: The vessel is severely dilated. Respirophasic changes in dimension are absent. Measurements Left ventricle Value Ref Aortic valve Value Ref AUNG, LAX 4.7 cm 3.8 - 5.2 Mellissa diam, ED 2.2 cm ----- ESD, LAX 2.6 cm 2.2 - 3.5 Peak v, S 1.26 m/sec ----- FS, LAX (H) 46 % 27 - 45 Peak grad, S 6.0 mm Hg ----- PW, ED, LAX (H) 1.0 cm 0.6 - 0.9 E', lat mellissa, TDI (L) 8.1 cm/sec >=10.0 Mitral valve Value Ref E/e', lat mellissa, 13 Peak E 1.09 m/sec ----- TDI Decel time 208 ms ----- E', med mellissa, TDI 7.6 cm/sec >=7.0 Peak grad, D 4.8 mm Hg --- -- E/e', med mellissa, 14 TDI Pulmonic valve Value Ref E', avg, TDI 7.9 cm/sec Peak v, S 0.69 m/sec ----- E/e', avg, TDI 14 <=14 Peak grad, S 2.0 mm Hg --- -- LVOT Value Ref Tricuspid valve Value Ref Peak marisela, S 0.76 m/sec TR peak v (H) 3.13 m/sec <=2.8 Peak RV-RA grad, S 39 mm Hg ----- Ventricular septum Value Ref IVS, ED (H) 1.1 cm 0.6 - 0.9 Aortic arch Value Ref Arch diam 2.9 cm ----- Right ventricle Value Ref AUNG, LAX 3.9 cm Decending aorta Value Ref AUNG minor ax, A4C (H) 4.5 cm 1.9 - 3.5 Charles peak marisela 0.69 m/sec ----- mid Pressure, S 51 mm Hg Pulmonary artery Value Ref Pressure, S 49.0 mm Hg ----- Left atrium Value Ref AP dim, ES (H) 4.50 cm 2.70 - Inferior vena cava Value Ref 3.80 Diam 3.7 cm ----- ML dim, A4C 4.4 cm SI dim, A4C 7.2 cm Vol/bsa, ES, 1-p 40 ml/m^2 11 - 40 A4C Right atrium Value Ref SI dim, ES (H) 6.9 cm 3.4 - 5.3 ML dim, ES, A4C (H) 5.4 cm 2.6 - 4.4 Estimated RAP 15 mm Hg Legend: (L) and (H) ren values outside specified reference range. Prepared and electronically signed by Abraham Peterson MD 09/26/2019 16:00
--- NOTE | 2019-09-26 16:15 | PN ---
Hospitalist Progress Note Date of Service: 09/26/19 Patient and evaluated admitted earlier this morning by [employer] for progressive dyspnea secondary to volume overload and non compliance with diuretics. She was seen by social media designer and assistant case manager. Physical therapy requested VSS Generally obese. on nasal canula Lung diminished BS bilateral and distant heart sound Extremity - Bilateral lymphedema Labs pertinent for INR 5.4; BNP 189 CXR - Congestive changes Echo - EF 55%, possible Diastollic and RV volume overload Ass: 1. CHF diastollic acute on chronic along with possilbe Pulmonary hypertension due to obesity hypoventilations 2. Coagulopathy - Secondary to warfarin overdose Plan - PT/OT - Counseled for compliance with diet, diuretics and activity - Will place her on lasix 40 mg IV bid - s/p Vit K. Will repeat for INR for am
[2019-09-26] MEDS: Furosemide IV* 10 MG/ML VIAL (40 MG) IV SCH (20:29)
[2019-09-27] MEDS: Hydrocodone/Acetamin 10/325 1 TAB PO PRN ×2 (05:23→21:48)
[2019-09-27 08:51] LABS: ABS Eosinophils 0.2 10^3/ul (0-0.6); ABS Lymphocytes 0.5 10^3/ul (1.0-4.8); ABS Monocytes 0.6 10^3/ul (0-0.8); ABS Neutrophils 2.6 10^3/ul (1.5-7.7); Hematocrit 29 % (35-47); Hemoglobin 9.8 g/dL (12.0-16.0); Lymphocyte % 13.7 %; Mean Corpuscular HGB Conc 34 g/dL (31-36); Mean Corpuscular Hemoglobin 31 pg (27-31); Mean Corpuscular Volume 92 fL (80-97); Mean Platelet Volume 8.3 fL (7.4-10.4); Nucleated Red Blood Cells % 0.1; Platelet Count 167 10^3/uL (150-450); Red Cell Distribution Width 17 % (10-15); White Blood Count 3.9 10^3/uL (3.5-10.8)
[2019-09-27] MEDS: Furosemide IV* 10 MG/ML VIAL (40 MG) IV SCH ×2 (09:02→21:49)
[2019-09-27] MEDS: Lidocaine PATCH 5%* 1 PATCH TRANSDERM SCH (09:02)
[2019-09-27] MEDS: Docusate CAP* 100 MG PO SCH ×2 (09:02→21:48)
[2019-09-27] MEDS: Ferrous Gluconate TAB* 324 MG TAB PO SCH (09:03)
[2019-09-27 09:04] LABS: INR 2.52 (0.82-1.09)
[2019-09-27 09:18] LABS: BUN/Creatinine Ratio 20.9 (8-20); Calcium 8.3 mg/dL (8.6-10.3); EGFR African American 78.9 (>60); EGFR Non-African American 65.2 (>60); Magnesium 1.6 mg/dL (1.9-2.7); Phosphorus 3.4 mg/dL (2.5-5.0); Potassium 3.8 mmol/L (3.5-5.0)
[2019-09-27] MEDS ORDERED: Magnesium Sulfate 2 GM IV* 2 GM/50 ML BAG IVPB ONE (16:20)
--- NOTE | 2019-09-27 16:27 | PN ---
Subjective Date of Service: 09/27/19 Interval History: Patient seen, She is still dyspenic and requiring oxygen. She is diuresing well with the IV lasix So far 8.5 Liter output since admission ~ 36 hrs. Weight is down from 392 lbs to 380 lbs. Her Body habitus is limiting. BMI 67!. She did participate with Physical therapy. She was able to sit up at the edge of the bed. Was able to stand. Encourage to continue to participate with Physical therapy. Past Medical History: Unchanged from Admission Objective Active Medications: Hydrocodone Bitart/Acetaminophen ([place] 10/325 (Nf)) 1 tab PO Q4H PRN PRN Reason: PAIN Last Admin: 09/27/19 05:23 Dose: 1 tab Docusate Sodium (Colace Cap*) 100 mg PO BID [facility] Last Admin: 09/27/19 09:02 Dose: 100 mg Famotidine (Pepcid Tab*) 20 mg PO DAILY PRN; Protocol PRN Reason: gi ulcer Ferrous Gluconate (Fergon Tab*) 324 mg PO DAILY [facility] Last Admin: 09/27/19 09:03 Dose: 324 mg Furosemide (Lasix Iv*) 40 mg IV BID [facility] Last Admin: 09/27/19 09:02 Dose: 40 mg Magnesium Sulfate (Magnesium Sulfate 2 Gm Iv*) 2 gm in 50 mls @ 50 mls/hr IVPB ONCE ONE Stop: 09/27/19 17:19 Lidocaine (Lidoderm 5% Patch*) 1 patch TRANSDERM DAILY [facility] Last Admin: 09/27/19 09:02 Dose: 1 patch Magnesium Oxide (Magox 400 Tab*) 400 mg PO BID [facility] Pharmacy Profile Note (Lidocaine Patch Remove*) 1 note PATCH OFF 2100 [facility] Last Admin: 09/26/19 13:29 Dose: 1 note Temazepam (Restoril Cap*) 15 mg PO BEDTIME PRN PRN Reason: INSOMNIA Vital Signs - 8 hr 09/27/19 09/27/19 11:21 15:16 Temperature 98.5 F 97.4 F Pulse Rate 63 82 Respiratory 16 20 Rate Blood Pressure 123/57 128/59 (mmHg) O2 Sat by Pulse 100 98 Oximetry Oxygen Devices in Use Now: Nasal Cannula Appearance: awake, alert. Morbid obese. Eyes: PERRLA, - Ears/Nose/Mouth/Throat: Mucous Membranes Moist, - - No JVD Neck: NL Appearance and Movements; NL JVP, Trachea Midline Respiratory: Clear to Auscultation - limited given her body habitus Cardiovascular: - - + edema Abdominal: NL Sounds; No Tenderness; No Distention, - - Obese. Extremities: - - Lymphedema bilateral and + 4 edema Skin: - - bilateral groin yeast infections. Stage -I decubitus ulcer as per nurse note and assessement Neurological: Alert and Oriented x 3 Result Diagrams: 09/27/19 08:35 09/27/19 08:35 Microbiology and Other Data: Microbiology 09/26/19 01:40 Urine Culture - Final Urine No Growth (<1,000 CFU/mL) Assess/Plan/Problems-Billing Assessment: 68 y/o female admitted for progressive Shortness of breath and deconditioning. Admitted for CHF acute diastollic and mobility dysfunctions - Patient Problems (1) Acute on chronic congestive heart failure Current Visit: No Status: Acute Code(s): I50.9 - HEART FAILURE, UNSPECIFIED SNOMED Code(s): 705544624 Comment: - Likely acute on chronic diastolic CHF in the setting of underlying lymphedema. - Echo was very limited. EF 55%. - Will maintain on fluid restriction and lasix 40 mg IV bid. - I/O's So far 8.5 Liters output since admission ~ 36 hrs. Weight is down from 392 lbs to 380 lbs. (2) Coagulopathy Current Visit: Yes Status: Acute Comment: - From her warfarin. Reversed with Vit K. - Today INR 2.5 down from 5.4 - Will resume and consult pharmacy for therapeutic dosing (3) Anemia Current Visit: No Status: Acute Code(s): D64.9 - ANEMIA, UNSPECIFIED SNOMED Code(s): 101578035 Comment: - Will check her iron, B12 (4) Atrial fibrillation Current Visit: No Status: Acute Code(s): I48.91 - UNSPECIFIED ATRIAL FIBRILLATION SNOMED Code(s): 35958470 Comment: - Will check EKG - Rate is controlled off of medications. (5) Lymphedema Current Visit: No Status: Acute Code(s): I89.0 - LYMPHEDEMA, NOT ELSEWHERE CLASSIFIED SNOMED Code(s): 803100842 Comment: - Continue KAMINI wraps and elevation. - Duiresis with lasix and reassess daily (6) DVT prophylaxis Current Visit: No Status: Acute Code(s): WSO9549 - SNOMED Code(s): 145689880 Comment: INR 2-3
[2019-09-27] MEDS ORDERED: Warfarin TAB(*) 5 MG PO ONE (17:00)
[2019-09-27] MEDS ORDERED: Magnesium Oxide TAB* 400 MG PO SCH (21:00)
[2019-09-27] MEDS: Lidocaine Patch REMOVE* 1 NOTE MISC PATCH OFF SCH (21:46)
[2019-09-28 06:05] LABS: ABS Eosinophils 0.2 10^3/ul (0-0.6); ABS Lymphocytes 0.5 10^3/ul (1.0-4.8); ABS Monocytes 0.7 10^3/ul (0-0.8); ABS Neutrophils 3.2 10^3/ul (1.5-7.7); Eosinophil % 3.5 %; Hematocrit 30 % (35-47); Mean Corpuscular HGB Conc 33 g/dL (31-36); Mean Corpuscular Hemoglobin 31 pg (27-31); Mean Corpuscular Volume 93 fL (80-97); Mean Platelet Volume 8.3 fL (7.4-10.4); Nucleated Red Blood Cells % 0.3; Platelet Count 173 10^3/uL (150-450); Red Blood Count 3.25 10^6 /uL (3.70-4.87); Red Cell Distribution Width 17 % (10-15); White Blood Count 4.6 10^3/uL (3.5-10.8)
[2019-09-28 06:11] LABS: INR 1.92 (0.82-1.09)
[2019-09-28 06:20] LABS: Anion Gap 3 mmol/L (2-11); BUN/Creatinine Ratio 20.2 (8-20); Blood Urea Nitrogen 17 mg/dL (6-24); CO2 Carbon Dioxide 34 mmol/L (22-32); Calcium 8.1 mg/dL (8.6-10.3); Chloride 98 mmol/L (101-111); EGFR African American 81.1 (>60); Glucose 84 mg/dL (70-100); Magnesium 1.7 mg/dL (1.9-2.7); Phosphorus 3.3 mg/dL (2.5-5.0); Potassium 3.6 mmol/L (3.5-5.0); Sodium 135 mmol/L (135-145)
[2019-09-28 06:49] LABS: % Iron Saturation 10 % (15-55); Iron 27 ug/dL (50-212); Total Iron Binding Capacity 269 mcg/dL (250-450); Transferrin 192 mg/dL (203-362)
[2019-09-28 07:14] LABS: Folate 8.01 ng/mL (>3.99)
[2019-09-28 07:26] LABS: Vitamin D Total 25(OH) < 7.0 ng/mL (20-50)
[2019-09-28] MEDS ORDERED: Furosemide IV* 10 MG/ML VIAL (40 MG) IV SCH (09:00)
[2019-09-28] MEDS: Lidocaine PATCH 5%* 1 PATCH TRANSDERM SCH (10:08)
[2019-09-28] MEDS: Ferrous Gluconate TAB* 324 MG TAB PO SCH (10:10)
[2019-09-28] MEDS: Magnesium Oxide TAB* 400 MG PO SCH ×2 (10:10→20:46)
[2019-09-28] MEDS: Docusate CAP* 100 MG PO SCH ×2 (10:10→20:46)
[2019-09-28] MEDS: Spironolactone TAB* 25 MG PO SCH (10:11)
[2019-09-28] MEDS: Nystatin TOP POWDER* 15 GM BTL TOPICAL SCH ×3 (10:16→20:45)
[2019-09-28] MEDS: Multivitamins/Minerals TAB PO SCH (11:43)
[2019-09-28] MEDS: Famotidine TAB* 20 MG PO SCH (11:44)
[2019-09-28] MEDS: Cholecalciferol TAB* 1000 UNITS PO SCH (11:44)
--- NOTE | 2019-09-28 12:33 | PN ---
Subjective Date of Service: 09/28/19 Interval History: Patient appears less dyspneic with conversations. She is diuresing very, very well. Her output so far exceeded 10 liters in 2 days. Weight is about 25 lbs drop since admission. I met her family son's and daughter's in law today. I explained to them and to the patient that she is clinically improving and she may be reaching a plateau in a day or two. they need to start thinking more reliastic about discharge. Whether going home or STR. I gave them my recommendations that STR is more reliastic. Family seems to be on board but the patient remains reluctant to go to rehab. - I advised to continue to participate with Physical therapy, will try to assess for home oxygen need and will optimize her treatment from IV to PO starting today. Past Medical History: Unchanged from Admission Objective Active Medications: Hydrocodone Bitart/Acetaminophen ([place] 10/325 (Nf)) 1 tab PO Q4H PRN PRN Reason: PAIN Last Admin: 09/27/19 21:48 Dose: 1 tab Cholecalciferol (Vitamin D Tab*) 2,000 units PO DAILY [facility] Last Admin: 09/28/19 11:44 Dose: 2,000 units Docusate Sodium (Colace Cap*) 100 mg PO BID [facility] Last Admin: 09/28/19 10:10 Dose: 100 mg Famotidine (Pepcid Tab*) 20 mg PO DAILY [facility]; Protocol Last Admin: 09/28/19 11:44 Dose: 20 mg Ferrous Gluconate (Fergon Tab*) 324 mg PO DAILY [facility] Last Admin: 09/28/19 10:10 Dose: 324 mg Furosemide (Lasix Tab*) 40 mg PO DAILY [facility] Lidocaine (Lidoderm 5% Patch*) 1 patch TRANSDERM DAILY [facility] Last Admin: 09/28/19 10:08 Dose: 1 patch Magnesium Oxide (Magox 400 Tab*) 800 mg PO BID [facility] Last Admin: 09/28/19 10:10 Dose: 800 mg Multivitamins/Minerals (Theragran/Minerals Tab*) 1 tab PO DAILY [facility] Last Admin: 09/28/19 11:43 Dose: 1 tab Nystatin (Nystatin Top Powder*) 1 applic TOPICAL TID [facility] Last Admin: 09/28/19 10:16 Dose: Not Given Pharmacy Profile Note (Lidocaine Patch Remove*) 1 note PATCH OFF 2099 [facility] Last Admin: 09/27/19 21:46 Dose: 1 note Pharmacy Profile Note (Coumadin Per Pharmacy*) 1 note FOLLOW UP .PER PHARMACY PROTOC [facility]; Protocol Spironolactone (Aldactone Tab*) 25 mg PO 1000 [facility] Last Admin: 09/28/19 10:11 Dose: 25 mg Temazepam (Restoril Cap*) 15 mg PO BEDTIME PRN PRN Reason: INSOMNIA Warfarin Sodium (Coumadin Tab(*)) 6 mg PO 1700 [facility] Stop: 09/28/19 17:01 Vital Signs - 8 hr 09/28/19 09/28/19 07:26 10:24 Temperature 97.6 F Pulse Rate 63 Respiratory 20 20 Rate Blood Pressure 114/51 (mmHg) O2 Sat by Pulse 99 Oximetry Oxygen Devices in Use Now: Nasal Cannula Appearance: awake, alert obese no distress Eyes: No Scleral Icterus, - - EOMI Ears/Nose/Mouth/Throat: NL Teeth, Lips, Gums, Mucous Membranes Moist Neck: NL Appearance and Movements; NL JVP, Trachea Midline Respiratory: Symmetrical Chest Expansion and Respiratory Effort, - - diminshed at bases and poor inspiratory effort. limited given her body habitus Cardiovascular: NL Sounds; No Murmurs; No JVD, - - lymphedema bilateral Abdominal: NL Sounds; No Tenderness; No Distention Skin: - - bilateral oliver rash both groins, and decibutus ulcer on her bottock see nursing note Neurological: Alert and Oriented x 3 Result Diagrams: 09/28/19 05:38 09/28/19 05:38 Microbiology and Other Data: Microbiology 09/26/19 01:40 Urine Culture - Final Urine No Growth (<1,000 CFU/mL) Assess/Plan/Problems-Billing Assessment: 68 y/o female admitted for progressive Shortness of breath and deconditioning. Admitted for CHF acute diastollic and mobility dysfunctions - Patient Problems (1) Acute on chronic congestive heart failure Current Visit: No Status: Acute Code(s): I50.9 - HEART FAILURE, UNSPECIFIED SNOMED Code(s): 646517421 Comment: - Likely acute on chronic diastolic CHF in the setting of underlying lymphedema. - Echo was very limited. EF 55%. - Will maintain on fluid restriction 2000 ml per 24 hrs. - Will change her lasix 40 mg from IV daily to po 40 mg po daily. monitor I/O. we may need to increase to 40 mg bid (she was on Bid first 48 hrs of admission). - I added aldactone 25 mg daily - I/O's exceeded 10 liters output since admission. Weight is down from 392 lbs to 369 lbs as of today. - I ordered oxygen assessment if she qualifies for home O2. Will D/c Tele today (2) Coagulopathy Current Visit: Yes Status: Acute Comment: - From her warfarin. Reversed with Vit K. - Today INR 1.9 down from 5.4 - resumed and consulted pharmacy for therapeutic dosing (3) Anemia Current Visit: No Status: Acute Code(s): D64.9 - ANEMIA, UNSPECIFIED SNOMED Code(s): 689933734 Comment: - Mixed of Iron deficiency and anemia chronic disease. - Started Iron supplement - awaiting B12 level. (4) Atrial fibrillation Current Visit: No Status: Acute Code(s): I48.91 - UNSPECIFIED ATRIAL FIBRILLATION SNOMED Code(s): 23900067 Comment: - EKG afib rate controlled - Rate is controlled off medications. (5) Lymphedema Current Visit: No Status: Acute Code(s): I89.0 - LYMPHEDEMA, NOT ELSEWHERE CLASSIFIED SNOMED Code(s): 175973420 Comment: - Continue KAMINI wraps and elevation. - Duiresis with lasix and reassess daily (6) Vitamin D deficiency disease Current Visit: Yes Status: Acute Code(s): E55.9 - VITAMIN D DEFICIENCY, UNSPECIFIED SNOMED Code(s): 72604397 Comment: - On vitamin D daily (7) DVT prophylaxis Current Visit: No Status: Acute Code(s): HCW7660 - SNOMED Code(s): 383570786 Comment: On warfarin for afib with goal INR 2-3
[2019-09-28] MEDS ORDERED: Warfarin TAB(*) 6 MG PO ONE (17:00)
[2019-09-28] MEDS: Hydrocodone/Acetamin 10/325 1 TAB PO PRN (17:15)
[2019-09-28] MEDS ORDERED: Acetaminophen TAB* 325 MG PO PRN (18:14)
[2019-09-28] MEDS: Lidocaine Patch REMOVE* 1 NOTE MISC PATCH OFF SCH (20:46)
[2019-09-29] MEDS: Hydrocodone/Acetamin 10/325 1 TAB PO PRN ×3 (03:04→22:27)
[2019-09-29 06:17] LABS: ABS Eosinophils 0.2 10^3/ul (0-0.6); ABS Lymphocytes 0.6 10^3/ul (1.0-4.8); ABS Monocytes 0.6 10^3/ul (0-0.8); ABS Neutrophils 2.9 10^3/ul (1.5-7.7); Eosinophil % 4.8 %; Hematocrit 30 % (35-47); Hemoglobin 9.9 g/dL (12.0-16.0); Lymphocyte % 13.1 %; Mean Corpuscular HGB Conc 33 g/dL (31-36); Mean Corpuscular Hemoglobin 30 pg (27-31); Mean Corpuscular Volume 92 fL (80-97); Mean Platelet Volume 8.4 fL (7.4-10.4); Platelet Count 163 10^3/uL (150-450); Red Blood Count 3.27 10^6 /uL (3.70-4.87); Red Cell Distribution Width 18 % (10-15); White Blood Count 4.3 10^3/uL (3.5-10.8)
[2019-09-29 06:24] LABS: INR 2.16 (0.82-1.09)
[2019-09-29 06:36] LABS: BUN/Creatinine Ratio 21.3 (8-20); Calcium 8.2 mg/dL (8.6-10.3); EGFR African American 85.8 (>60); EGFR Non-African American 70.9 (>60); Magnesium 1.7 mg/dL (1.9-2.7); Phosphorus 2.7 mg/dL (2.5-5.0); Potassium 3.7 mmol/L (3.5-5.0)
[2019-09-29] MEDS ORDERED: Potassium Chlor TAB* 20 MEQ TAB.ER PO ONE (09:13)
[2019-09-29] MEDS ORDERED: Magnesium Sulfate 2 GM IV* 2 GM/50 ML BAG IVPB ONE (09:13)
[2019-09-29] MEDS: Spironolactone TAB* 25 MG PO SCH (09:31)
[2019-09-29] MEDS: Multivitamins/Minerals TAB PO SCH (09:32)
[2019-09-29] MEDS: Furosemide TAB* 40 MG PO SCH (09:32)
[2019-09-29] MEDS: Famotidine TAB* 20 MG PO SCH (09:32)
[2019-09-29] MEDS: Ferrous Gluconate TAB* 324 MG TAB PO SCH (09:32)
[2019-09-29] MEDS: Magnesium Oxide TAB* 400 MG PO SCH ×2 (09:33→22:27)
[2019-09-29] MEDS: Cholecalciferol TAB* 1000 UNITS PO SCH (09:35)
[2019-09-29] MEDS: Lidocaine PATCH 5%* 1 PATCH TRANSDERM SCH (09:35)
[2019-09-29] MEDS: Docusate CAP* 100 MG PO SCH (10:02)
--- NOTE | 2019-09-29 14:21 | PN ---
Subjective Date of Service: 09/29/19 Interval History: No acute events overnight. Pt has remained on O2 with SaO2 100% - will wean. Pt reports improvement in SOB but sometimes "cannot catch breath". Denies pain or fevers. Pt is amenable to STR placement. Objective Active Medications: Acetaminophen (Tylenol Tab*) 650 mg PO Q4H PRN PRN Reason: PAIN Hydrocodone Bitart/Acetaminophen ([place] 10/325 (Nf)) 1 tab PO Q4H PRN PRN Reason: PAIN Last Admin: 09/29/19 09:34 Dose: 1 tab Cholecalciferol (Vitamin D Tab*) 2,000 units PO DAILY [facility] Last Admin: 09/29/19 09:35 Dose: 2,000 units Famotidine (Pepcid Tab*) 20 mg PO DAILY [facility]; Protocol Last Admin: 09/29/19 09:32 Dose: 20 mg Ferrous Gluconate (Fergon Tab*) 324 mg PO DAILY [facility] Last Admin: 09/29/19 09:32 Dose: 324 mg Furosemide (Lasix Tab*) 40 mg PO DAILY [facility] Last Admin: 09/29/19 09:32 Dose: 40 mg Lidocaine (Lidoderm 5% Patch*) 1 patch TRANSDERM DAILY [facility] Last Admin: 09/29/19 09:35 Dose: 1 patch Magnesium Oxide (Magox 400 Tab*) 800 mg PO BID [facility] Last Admin: 09/29/19 09:33 Dose: 800 mg Multivitamins/Minerals (Theragran/Minerals Tab*) 1 tab PO DAILY [facility] Last Admin: 09/29/19 09:32 Dose: 1 tab Nystatin (Nystatin Top Powder*) 1 applic TOPICAL TID [facility] Last Admin: 09/28/19 20:45 Dose: 1 applic Pharmacy Profile Note (Lidocaine Patch Remove*) 1 note PATCH OFF 2100 [facility] Last Admin: 09/28/19 20:46 Dose: 1 note Pharmacy Profile Note (Coumadin Per Pharmacy*) 1 note FOLLOW UP .PER PHARMACY PROTOC [facility]; Protocol Spironolactone (Aldactone Tab*) 25 mg PO 1000 [facility] Last Admin: 09/29/19 09:31 Dose: 25 mg Temazepam (Restoril Cap*) 15 mg PO BEDTIME PRN PRN Reason: INSOMNIA Warfarin Sodium (Coumadin Tab(*)) 6 mg PO ONCE@1700 ONE Stop: 09/29/19 17:01 Vital Signs - 8 hr 09/29/19 09/29/19 09/29/19 07:15 09:34 09:56 Temperature 98.3 F Pulse Rate 60 Respiratory 18 20 20 Rate Blood Pressure 97/67 (mmHg) O2 Sat by Pulse 100 Oximetry 09/29/19 09/29/19 11:15 12:00 Temperature 98.7 F Pulse Rate Respiratory 16 18 Rate Blood Pressure 116/52 (mmHg) O2 Sat by Pulse 100 Oximetry Oxygen Devices in Use Now: Nasal Cannula Appearance: chronically ill appearing obese woman, appears older than her stated age Ears/Nose/Mouth/Throat: Clear Oropharnyx, Mucous Membranes Moist Neck: - - unable to asses jvp given habitus Respiratory: - - decreased breath sounds, no wheeze or crackles Cardiovascular: NL Sounds; No Murmurs; No JVD, RRR Abdominal: NL Sounds; No Tenderness; No Distention, No Hepatosplenomegaly Extremities: - - severe lymphedema b/l Result Diagrams: 09/29/19 05:48 09/29/19 05:48 Microbiology and Other Data: Microbiology 09/26/19 01:40 Urine Culture - Final Urine No Growth (<1,000 CFU/mL) Assess/Plan/Problems-Billing Assessment: 68W with afib on warfarin, HFpEF, presents with dyspnea and deconditioning, found with HF exacerbation. - Patient Problems (1) Acute on chronic congestive heart failure Comment: Likely acute on chronic diastolic CHF in the setting of med nonadherence. - cont furosemide 40 mg po daily - cont spironolactone 25 mg daily - I/O's exceeded 10 liters output since admission, with significant reduction in weight (2) Anemia Comment: Mixed of Iron deficiency and anemia chronic disease. - cont ferrous sulfate qd on empty stomach - awaiting B12 level. (3) Vitamin D deficiency disease Comment: - On vitamin D daily (4) Atrial fibrillation Comment: - rate controlled without medication - cont warfarin with INR goal 2-3 (5) Lymphedema Comment: - Continue KAMINI wraps and elevation. - Duiresis with lasix and reassess daily (6) DVT prophylaxis Comment: On warfarin for afib with goal INR 2-3
[2019-09-29] MEDS: Nystatin TOP POWDER* 15 GM BTL TOPICAL SCH ×3 (15:38→22:30)
[2019-09-29] MEDS ORDERED: Warfarin TAB(*) 6 MG PO ONE (17:00)
[2019-09-29] MEDS: Lidocaine Patch REMOVE* 1 NOTE MISC PATCH OFF SCH (22:27)
[2019-09-30 06:48] LABS: INR 2.26 (0.82-1.09)
[2019-09-30 07:06] LABS: Calcium 8.7 mg/dL (8.6-10.3); EGFR African American 83.4 (>60); EGFR Non-African American 68.9 (>60); Potassium 4.5 mmol/L (3.5-5.0)
[2019-09-30] MEDS: Magnesium Oxide TAB* 400 MG PO SCH (08:50)
[2019-09-30] MEDS: Spironolactone TAB* 25 MG PO SCH (08:51)
[2019-09-30] MEDS: Famotidine TAB* 20 MG PO SCH (08:51)
[2019-09-30] MEDS: Cholecalciferol TAB* 1000 UNITS PO SCH (08:51)
[2019-09-30] MEDS: Ferrous Gluconate TAB* 324 MG TAB PO SCH (08:52)
[2019-09-30] MEDS: Furosemide TAB* 40 MG PO SCH (08:52)
[2019-09-30] MEDS: Lidocaine PATCH 5%* 1 PATCH TRANSDERM SCH (08:53)
[2019-09-30] MEDS: Multivitamins/Minerals TAB PO SCH (08:55)
[2019-09-30] MEDS: Nystatin TOP POWDER* 15 GM BTL TOPICAL SCH ×3 (09:00→20:31)
[2019-09-30] MEDS: Hydrocodone/Acetamin 10/325 1 TAB PO PRN (09:00)
--- NOTE | 2019-09-30 09:35 | PN ---
Subjective Date of Service: 09/30/19 Interval History: No acute events overnight. Pt now on room air and pending BAMBI. Need to encourage ambulation and getting out of bed. Refused PT yesterday. Also asked to keep Kaminski in so she does not have to get out of bed. Again reinforced with patient the risks of indwelling catheter, including UTI, eventual urinary retention, and debility or DVT from not moving out of bed. Pt again asks to remove Kaminski tomorrow, which she requested yesterday. Discussed we are no longer offering this therapy to her. Objective Active Medications: Acetaminophen (Tylenol Tab*) 650 mg PO Q4H PRN PRN Reason: PAIN Hydrocodone Bitart/Acetaminophen ([place] 10/325 (Nf)) 1 tab PO Q4H PRN PRN Reason: PAIN Last Admin: 09/30/19 09:00 Dose: 1 tab Cholecalciferol (Vitamin D Tab*) 2,000 units PO DAILY [facility] Last Admin: 09/30/19 08:51 Dose: 2,000 units Famotidine (Pepcid Tab*) 20 mg PO DAILY [facility]; Protocol Last Admin: 09/30/19 08:51 Dose: 20 mg Ferrous Gluconate (Fergon Tab*) 324 mg PO DAILY [facility] Last Admin: 09/30/19 08:52 Dose: 324 mg Furosemide (Lasix Tab*) 40 mg PO DAILY [facility] Last Admin: 09/30/19 08:52 Dose: 40 mg Lidocaine (Lidoderm 5% Patch*) 1 patch TRANSDERM DAILY [facility] Last Admin: 09/30/19 08:53 Dose: 1 patch Magnesium Oxide (Magox 400 Tab*) 800 mg PO BID [facility] Last Admin: 09/30/19 08:50 Dose: 800 mg Multivitamins/Minerals (Theragran/Minerals Tab*) 1 tab PO DAILY [facility] Last Admin: 09/30/19 08:55 Dose: Not Given Nystatin (Nystatin Top Powder*) 1 applic TOPICAL TID [facility] Last Admin: 09/30/19 09:00 Dose: 1 applic Pharmacy Profile Note (Lidocaine Patch Remove*) 1 note PATCH OFF 2100 [facility] Last Admin: 09/29/19 22:27 Dose: 1 note Pharmacy Profile Note (Coumadin Per Pharmacy*) 1 note FOLLOW UP .PER PHARMACY PROTOC [facility]; Protocol Spironolactone (Aldactone Tab*) 25 mg PO 1000 [facility] Last Admin: 09/30/19 08:51 Dose: 25 mg Temazepam (Restoril Cap*) 15 mg PO BEDTIME PRN PRN Reason: INSOMNIA Warfarin Sodium (Coumadin Tab(*)) 6 mg PO 1700 ONE Stop: 09/30/19 17:01 Vital Signs - 8 hr 09/30/19 09/30/19 09/30/19 02:47 07:15 08:00 Temperature 97.5 F 98.3 F Pulse Rate 63 61 Respiratory 16 16 16 Rate Blood Pressure 144/55 135/50 (mmHg) O2 Sat by Pulse 97 97 Oximetry 09/30/19 09/30/19 08:03 09:00 Temperature Pulse Rate Respiratory 20 Rate Blood Pressure (mmHg) O2 Sat by Pulse 95 Oximetry Oxygen Devices in Use Now: None Appearance: chronically ill appearing obese woman in no acute distress Eyes: No Scleral Icterus Ears/Nose/Mouth/Throat: Clear Oropharnyx, Mucous Membranes Moist Neck: Trachea Midline, - - unable to assess JVP Respiratory: Symmetrical Chest Expansion and Respiratory Effort, Clear to Auscultation Cardiovascular: RRR, - - no murmurs Abdominal: NL Sounds; No Tenderness; No Distention, No Hepatosplenomegaly Extremities: - - lymphedema b/l Skin: No Rash or Ulcers Neurological: Alert and Oriented x 3 Result Diagrams: 09/29/19 05:48 09/30/19 06:33 Microbiology and Other Data: Microbiology 09/26/19 01:40 Urine Culture - Final Urine No Growth (<1,000 CFU/mL) Assess/Plan/Problems-Billing Assessment: 68W with afib on warfarin, HFpEF, presents with dyspnea and deconditioning, found with HF exacerbation. - Patient Problems (1) Acute on chronic congestive heart failure Comment: Likely acute on chronic diastolic CHF in the setting of med nonadherence. - cont furosemide 40 mg po daily - will DC spironolactone, as this is not on $4 med list - I/O's exceeded 10 liters output since admission, with significant reduction in weight (2) Anemia Comment: Mixed of Iron deficiency and anemia chronic disease. - cont ferrous sulfate qd on empty stomach (3) Vitamin D deficiency disease Comment: - On vitamin D daily (4) Atrial fibrillation Comment: - rate controlled without medication - cont warfarin with INR goal 2-3 (5) Lymphedema Comment: - Continue KAMINI wraps and elevation. - Duiresis with lasix and reassess daily (6) DVT prophylaxis Comment: On warfarin for afib with goal INR 2-3
[2019-09-30] MEDS ORDERED: Warfarin TAB(*) 3 MG PO ONE (17:00)
[2019-09-30] MEDS: Lidocaine Patch REMOVE* 1 NOTE MISC PATCH OFF SCH (20:30)
[2019-10-01] MEDS: Hydrocodone/Acetamin 10/325 1 TAB PO PRN ×3 (01:21→13:58)
[2019-10-01 06:22] LABS: INR 2.61 (0.82-1.09)
[2019-10-01] MEDS: Famotidine TAB* 20 MG PO SCH (08:56)
[2019-10-01] MEDS: Multivitamins/Minerals TAB PO SCH (08:56)
[2019-10-01] MEDS: Cholecalciferol TAB* 1000 UNITS PO SCH (08:56)
[2019-10-01] MEDS: Furosemide TAB* 40 MG PO SCH (08:56)
[2019-10-01] MEDS: Ferrous Gluconate TAB* 324 MG TAB PO SCH (08:56)
[2019-10-01] MEDS: Lidocaine PATCH 5%* 1 PATCH TRANSDERM SCH (08:56)
--- NOTE | 2019-10-01 09:58 | PN ---
Subjective Date of Service: 10/01/19 Interval History: No acute events overnight. Pt requested 1L oxygen for anxiety. SaO2 at that time was upper 90s%. Kaminski out yesterday and ambulation continues to be encouraged. Pending placement in [facility]. Objective Active Medications: Acetaminophen (Tylenol Tab*) 650 mg PO Q4H PRN PRN Reason: PAIN Hydrocodone Bitart/Acetaminophen ([place] 10/325 (Nf)) 1 tab PO Q4H PRN PRN Reason: PAIN Last Admin: 10/01/19 08:55 Dose: 1 tab Cholecalciferol (Vitamin D Tab*) 2,000 units PO DAILY [facility] Last Admin: 10/01/19 08:56 Dose: 2,000 units Famotidine (Pepcid Tab*) 20 mg PO DAILY [facility]; Protocol Last Admin: 10/01/19 08:56 Dose: 20 mg Ferrous Gluconate (Fergon Tab*) 324 mg PO DAILY [facility] Last Admin: 10/01/19 08:56 Dose: 324 mg Furosemide (Lasix Tab*) 40 mg PO DAILY [facility] Last Admin: 10/01/19 08:56 Dose: 40 mg Lidocaine (Lidoderm 5% Patch*) 1 patch TRANSDERM DAILY [facility] Last Admin: 10/01/19 08:56 Dose: 1 patch Multivitamins/Minerals (Theragran/Minerals Tab*) 1 tab PO DAILY [facility] Last Admin: 10/01/19 08:56 Dose: Not Given Nystatin (Nystatin Top Powder*) 1 applic TOPICAL TID [facility] Last Admin: 09/30/19 20:31 Dose: 1 applic Pharmacy Profile Note (Lidocaine Patch Remove*) 1 note PATCH OFF 2100 [facility] Last Admin: 09/30/19 20:30 Dose: 1 note Pharmacy Profile Note (Coumadin Per Pharmacy*) 1 note FOLLOW UP .PER PHARMACY PROTOC [facility]; Protocol Temazepam (Restoril Cap*) 15 mg PO BEDTIME PRN PRN Reason: INSOMNIA Vital Signs - 8 hr 10/01/19 10/01/19 10/01/19 03:00 03:22 07:50 Temperature 98.3 F 98.2 F Pulse Rate 83 70 Respiratory 16 20 16 Rate Blood Pressure 131/58 149/75 (mmHg) O2 Sat by Pulse 97 96 Oximetry 10/01/19 10/01/19 08:55 09:02 Temperature Pulse Rate Respiratory 18 20 Rate Blood Pressure (mmHg) O2 Sat by Pulse Oximetry Oxygen Devices in Use Now: Nasal Cannula Appearance: well appearing, nad, speaking in full sentences Eyes: No Scleral Icterus Ears/Nose/Mouth/Throat: Clear Oropharnyx, Mucous Membranes Moist Respiratory: Symmetrical Chest Expansion and Respiratory Effort, Clear to Auscultation - anteriorly Cardiovascular: RRR Abdominal: NL Sounds; No Tenderness; No Distention, No Hepatosplenomegaly Extremities: - - lymphedema Neurological: Alert and Oriented x 3 Result Diagrams: 09/29/19 05:48 09/30/19 06:33 Microbiology and Other Data: Microbiology 09/26/19 01:40 Urine Culture - Final Urine No Growth (<1,000 CFU/mL) Assess/Plan/Problems-Billing Assessment: 68W with afib on warfarin, HFpEF, presents with dyspnea and deconditioning, found with HF exacerbation. - Patient Problems (1) Acute on chronic congestive heart failure Comment: Likely acute on chronic diastolic CHF in the setting of med nonadherence. - cont furosemide 40 mg po daily - will DC spironolactone, as this is not on $4 med list - I/O's exceeded 10 liters output since admission, with significant reduction in weight (2) Anemia Comment: Mixed of Iron deficiency and anemia chronic disease. - cont ferrous sulfate qd on empty stomach (3) Vitamin D deficiency disease Comment: - On vitamin D daily (4) Atrial fibrillation Comment: - rate controlled without medication - cont warfarin with INR goal 2-3 (5) Lymphedema Comment: - Continue KAMINI wraps and elevation. - Duiresis with lasix and reassess daily (6) DVT prophylaxis Comment: On warfarin for afib with goal INR 2-3
[2019-10-01] MEDS ORDERED: Warfarin TAB(*) 5 MG PO ONE (17:00)
[2019-10-01] MEDS: Nystatin TOP POWDER* 15 GM BTL TOPICAL SCH ×3 (17:32→20:51)
[2019-10-01] MEDS: Lidocaine Patch REMOVE* 1 NOTE MISC PATCH OFF SCH (20:51)
[2019-10-02] MEDS: Hydrocodone/Acetamin 10/325 1 TAB PO PRN ×4 (00:13→21:10)
[2019-10-02 05:44] LABS: INR 3.15 (0.82-1.09)
[2019-10-02 05:55] LABS: BUN/Creatinine Ratio 19.6 (8-20); Calcium 8.9 mg/dL (8.6-10.3); EGFR African American 68.7 (>60); EGFR Non-African American 56.8 (>60); Magnesium 1.9 mg/dL (1.9-2.7); Potassium 4.6 mmol/L (3.5-5.0)
--- NOTE | 2019-10-02 09:45 | PN ---
Subjective Date of Service: 10/02/19 Interval History: No acute events overnight. Per exams and labs, pt likely too dry, so will decrease furosemide from 40mg to 20mg PO. Pending STR placement. Objective Active Medications: Acetaminophen (Tylenol Tab*) 650 mg PO Q4H PRN PRN Reason: PAIN Hydrocodone Bitart/Acetaminophen ([place] 10/325 (Nf)) 1 tab PO Q4H PRN PRN Reason: PAIN Last Admin: 10/02/19 00:13 Dose: 1 tab Cholecalciferol (Vitamin D Tab*) 2,000 units PO DAILY [facility] Last Admin: 10/01/19 08:56 Dose: 2,000 units Famotidine (Pepcid Tab*) 20 mg PO DAILY [facility]; Protocol Last Admin: 10/01/19 08:56 Dose: 20 mg Ferrous Gluconate (Fergon Tab*) 324 mg PO DAILY [facility] Last Admin: 10/01/19 08:56 Dose: 324 mg Furosemide (Lasix Tab*) 20 mg PO DAILY [facility] Lidocaine (Lidoderm 5% Patch*) 1 patch TRANSDERM DAILY [facility] Last Admin: 10/01/19 08:56 Dose: 1 patch Multivitamins/Minerals (Theragran/Minerals Tab*) 1 tab PO DAILY [facility] Last Admin: 10/01/19 08:56 Dose: Not Given Nystatin (Nystatin Top Powder*) 1 applic TOPICAL TID [facility] Last Admin: 10/01/19 20:51 Dose: 1 applic Pharmacy Profile Note (Lidocaine Patch Remove*) 1 note PATCH OFF 2100 [facility] Last Admin: 10/01/19 20:51 Dose: 1 note Pharmacy Profile Note (Coumadin Per Pharmacy*) 1 note FOLLOW UP .PER PHARMACY PROTOC [facility]; Protocol Temazepam (Restoril Cap*) 15 mg PO BEDTIME PRN PRN Reason: INSOMNIA Vital Signs - 8 hr 10/02/19 10/02/19 03:15 04:05 Temperature 97.1 F Pulse Rate 65 Respiratory 16 16 Rate Blood Pressure 141/65 (mmHg) O2 Sat by Pulse 99 Oximetry Oxygen Devices in Use Now: None Appearance: chronically-ill appering obese woman in NAD, alert and interactive, speaks in full sentences Eyes: No Scleral Icterus Ears/Nose/Mouth/Throat: Clear Oropharnyx, Mucous Membranes Moist Neck: - - unable to see JVP Respiratory: Symmetrical Chest Expansion and Respiratory Effort, Clear to Auscultation - anteriorly, breath sounds decreased Cardiovascular: NL Sounds; No Murmurs; No JVD, RRR Extremities: - - lymphedema b/l Result Diagrams: 09/29/19 05:48 10/02/19 05:20 Microbiology and Other Data: Microbiology 09/26/19 01:40 Urine Culture - Final Urine No Growth (<1,000 CFU/mL) Assess/Plan/Problems-Billing Assessment: 68W with afib on warfarin, HFpEF, presents with dyspnea and deconditioning, found with HF exacerbation. - Patient Problems (1) Acute on chronic congestive heart failure Comment: Likely acute on chronic diastolic CHF in the setting of med nonadherence. - decrease furosemide to 20 mg po daily - will DC spironolactone, as this is not on $4 med list - I/O's exceeded 10 liters output since admission, with significant reduction in weight (2) Anemia Comment: Mixed of Iron deficiency and anemia chronic disease. - cont ferrous sulfate qd on empty stomach (3) Vitamin D deficiency disease Comment: - On vitamin D daily (4) Atrial fibrillation Comment: - rate controlled without medication - cont warfarin with INR goal 2-3 (5) Lymphedema Comment: - Continue KAMINI wraps and elevation. - Duiresis with lasix and reassess daily (6) DVT prophylaxis Comment: On warfarin for afib with goal INR 2-3
[2019-10-02] MEDS: Famotidine TAB* 20 MG PO SCH (10:21)
[2019-10-02] MEDS: Cholecalciferol TAB* 1000 UNITS PO SCH (10:21)
[2019-10-02] MEDS: Multivitamins/Minerals TAB PO SCH (10:22)
[2019-10-02] MEDS: Lidocaine PATCH 5%* 1 PATCH TRANSDERM SCH (10:22)
[2019-10-02] MEDS: Ferrous Gluconate TAB* 324 MG TAB PO SCH (10:22)
[2019-10-02] MEDS: Furosemide TAB* 40 MG PO SCH (11:09)
[2019-10-02] MEDS: Nystatin TOP POWDER* 15 GM BTL TOPICAL SCH ×3 (11:20→21:07)
[2019-10-02] MEDS ORDERED: Warfarin TAB(*) 1 MG PO ONE (17:00)
[2019-10-02] MEDS ORDERED: NS 0.9% 1000 ML** 1,000 ML IV SCH (17:00)
[2019-10-02] MEDS ORDERED: NS 0.9% 250 ML* 250 ML IV SCH (19:00)
[2019-10-02] MEDS: Lidocaine Patch REMOVE* 1 NOTE MISC PATCH OFF SCH (21:07)
[2019-10-03] MEDS: Hydrocodone/Acetamin 10/325 1 TAB PO PRN ×4 (01:32→20:09)
[2019-10-03 05:42] LABS: INR 3.14 (0.82-1.09)
[2019-10-03 05:53] LABS: BUN/Creatinine Ratio 20.4 (8-20); Calcium 8.8 mg/dL (8.6-10.3); EGFR African American 72.1 (>60); EGFR Non-African American 59.6 (>60); Magnesium 1.9 mg/dL (1.9-2.7); Potassium 4.9 mmol/L (3.5-5.0)
[2019-10-03] MEDS: Cholecalciferol TAB* 1000 UNITS PO SCH (07:50)
[2019-10-03] MEDS: Furosemide TAB* 20 MG PO SCH (07:51)
[2019-10-03] MEDS: Multivitamins/Minerals TAB PO SCH (07:51)
[2019-10-03] MEDS: Famotidine TAB* 20 MG PO SCH (07:51)
[2019-10-03] MEDS: Lidocaine PATCH 5%* 1 PATCH TRANSDERM SCH (07:51)
[2019-10-03] MEDS: Nystatin TOP POWDER* 15 GM BTL TOPICAL SCH ×3 (07:51→20:10)
[2019-10-03] MEDS: Ferrous Gluconate TAB* 324 MG TAB PO SCH (07:51)
--- NOTE | 2019-10-03 10:13 | PN ---
Subjective Date of Service: 10/03/19 Interval History: No acute overnight events. Pending BAMBI. Objective Active Medications: Acetaminophen (Tylenol Tab*) 650 mg PO Q4H PRN PRN Reason: PAIN Hydrocodone Bitart/Acetaminophen ([place] 10/325 (Nf)) 1 tab PO Q4H PRN PRN Reason: PAIN Last Admin: 10/03/19 07:50 Dose: 1 tab Cholecalciferol (Vitamin D Tab*) 2,000 units PO DAILY [facility] Last Admin: 10/03/19 07:50 Dose: 2,000 units Famotidine (Pepcid Tab*) 20 mg PO DAILY [facility]; Protocol Last Admin: 10/03/19 07:51 Dose: 20 mg Ferrous Gluconate (Fergon Tab*) 324 mg PO DAILY [facility] Last Admin: 10/03/19 07:51 Dose: 324 mg Furosemide (Lasix Tab*) 20 mg PO DAILY [facility] Last Admin: 10/03/19 07:51 Dose: 20 mg Lidocaine (Lidoderm 5% Patch*) 1 patch TRANSDERM DAILY [facility] Last Admin: 10/03/19 07:51 Dose: 1 patch Multivitamins/Minerals (Theragran/Minerals Tab*) 1 tab PO DAILY [facility] Last Admin: 10/03/19 07:51 Dose: Not Given Nystatin (Nystatin Top Powder*) 1 applic TOPICAL TID [facility] Last Admin: 10/03/19 07:51 Dose: 1 applic Pharmacy Profile Note (Lidocaine Patch Remove*) 1 note PATCH OFF 2100 [facility] Last Admin: 10/02/19 21:07 Dose: 1 note Pharmacy Profile Note (Coumadin Per Pharmacy*) 1 note FOLLOW UP .PER PHARMACY PROTOC [facility]; Protocol Temazepam (Restoril Cap*) 15 mg PO BEDTIME PRN PRN Reason: INSOMNIA Warfarin Sodium (Coumadin Tab(*)) 1 mg PO ONCE ONE Stop: 10/03/19 17:01 Vital Signs - 8 hr 10/03/19 10/03/19 10/03/19 03:15 03:38 07:50 Temperature 97.8 F Pulse Rate 58 Respiratory 16 19 18 Rate Blood Pressure 139/59 (mmHg) O2 Sat by Pulse 98 Oximetry Oxygen Devices in Use Now: None Appearance: chronically ill appearing obese woman in NAD, alert and interactive , speaks in full sentences Eyes: No Scleral Icterus Ears/Nose/Mouth/Throat: Clear Oropharnyx, Mucous Membranes Moist Neck: Trachea Midline - unable to examine JVP given habitus Respiratory: - - diminished breath sounds, no adventitious sounds Cardiovascular: - - irreg irreg Abdominal: - - protuberant, nontender Extremities: - - significant lymphedema b/l Neurological: Alert and Oriented x 3 Result Diagrams: 09/29/19 05:48 10/03/19 05:05 Microbiology and Other Data: Microbiology 09/26/19 01:40 Urine Culture - Final Urine No Growth (<1,000 CFU/mL) Assess/Plan/Problems-Billing Assessment: 68W with afib on warfarin, HFpEF, presents with dyspnea and deconditioning, found with HF exacerbation. - Patient Problems (1) Acute on chronic congestive heart failure Comment: Likely acute on chronic diastolic CHF in the setting of med nonadherence. - cont furosemide 20 mg po daily - will DC spironolactone, as this is not on $4 med list - I/O's exceeded 10 liters output since admission, with significant reduction in weight (2) Anemia Comment: Mixed of Iron deficiency and anemia chronic disease. - cont ferrous sulfate qd on empty stomach (3) Vitamin D deficiency disease Comment: - On vitamin D daily (4) Atrial fibrillation Comment: - rate controlled without medication - cont warfarin with INR goal 2-3 (5) Lymphedema Comment: - Continue KAMINI wraps and elevation. - Duiresis with lasix and reassess daily (6) DVT prophylaxis Comment: On warfarin for afib with goal INR 2-3
[2019-10-03] MEDS ORDERED: Warfarin TAB(*) 1 MG PO ONE (17:00)
[2019-10-03] MEDS ORDERED: Temazepam CAP* 15 MG PO ONE (18:55)
[2019-10-03] MEDS ORDERED: Temazepam CAP* 15 MG PO PRN (18:56)
[2019-10-03] MEDS: Lidocaine Patch REMOVE* 1 NOTE MISC PATCH OFF SCH (20:20)
[2019-10-04 06:45] LABS: INR 3.05 (0.82-1.09)
[2019-10-04] MEDS: Famotidine TAB* 20 MG PO SCH (09:26)
[2019-10-04] MEDS: Cholecalciferol TAB* 1000 UNITS PO SCH (09:27)
[2019-10-04] MEDS: Multivitamins/Minerals TAB PO SCH ×2 (09:27→11:29)
[2019-10-04] MEDS: Lidocaine PATCH 5%* 1 PATCH TRANSDERM SCH (09:27)
[2019-10-04] MEDS: Ferrous Gluconate TAB* 324 MG TAB PO SCH (09:27)
[2019-10-04] MEDS: Furosemide TAB* 20 MG PO SCH (09:27)
[2019-10-04] MEDS: Hydrocodone/Acetamin 10/325 1 TAB PO PRN ×3 (10:10→19:59)
[2019-10-04] MEDS: Nystatin TOP POWDER* 15 GM BTL TOPICAL SCH ×3 (10:11→19:59)
--- NOTE | 2019-10-04 10:47 | PN ---
Subjective Date of Service: 10/04/19 Interval History: Pt feels well, no new complaints, uses 02 at home Past Medical History: Unchanged from Admission Objective Active Medications: Acetaminophen (Tylenol Tab*) 650 mg PO Q4H PRN PRN Reason: PAIN Hydrocodone Bitart/Acetaminophen ([place] 10/325 (Nf)) 1 tab PO Q4H PRN PRN Reason: PAIN Last Admin: 10/04/19 10:10 Dose: 1 tab Cholecalciferol (Vitamin D Tab*) 2,000 units PO DAILY [facility] Last Admin: 10/04/19 09:27 Dose: 2,000 units Famotidine (Pepcid Tab*) 20 mg PO DAILY [facility]; Protocol Last Admin: 10/04/19 09:26 Dose: 20 mg Ferrous Gluconate (Fergon Tab*) 324 mg PO DAILY [facility] Last Admin: 10/04/19 09:27 Dose: 324 mg Furosemide (Lasix Tab*) 20 mg PO DAILY [facility] Last Admin: 10/04/19 09:27 Dose: 20 mg Lidocaine (Lidoderm 5% Patch*) 1 patch TRANSDERM DAILY [facility] Last Admin: 10/04/19 09:27 Dose: 1 patch Multivitamins/Minerals (Theragran/Minerals Tab*) 1 tab PO DAILY [facility] Last Admin: 10/04/19 09:27 Dose: 1 tab Nystatin (Nystatin Top Powder*) 1 applic TOPICAL TID [facility] Last Admin: 10/04/19 10:11 Dose: 1 applic Pharmacy Profile Note (Lidocaine Patch Remove*) 1 note PATCH OFF 2100 [facility] Last Admin: 10/03/19 20:20 Dose: 1 note Pharmacy Profile Note (Coumadin Per Pharmacy*) 1 note FOLLOW UP .PER PHARMACY PROTOC [facility]; Protocol Temazepam (Restoril Cap*) 15 mg PO BEDTIME PRN PRN Reason: INSOMNIA Vital Signs - 8 hr 10/04/19 10/04/19 10/04/19 03:03 07:15 10:10 Temperature 97.8 F 97.3 F Pulse Rate 75 50 Respiratory 18 20 16 Rate Blood Pressure 114/57 120/63 (mmHg) O2 Sat by Pulse 96 100 Oximetry Oxygen Devices in Use Now: Nasal Cannula Appearance: 68 yo F in NAD, aAOx3 Eyes: No Scleral Icterus, PERRLA Ears/Nose/Mouth/Throat: NL Teeth, Lips, Gums, Mucous Membranes Moist Neck: NL Appearance and Movements; NL JVP Respiratory: Symmetrical Chest Expansion and Respiratory Effort, Clear to Auscultation Cardiovascular: NL Sounds; No Murmurs; No JVD, - - irregular Abdominal: NL Sounds; No Tenderness; No Distention Lymphatic: No Cervical Adenopathy Extremities: No Clubbing, Cyanosis, - - b/l LE's lymphoedema Skin: No Rash or Ulcers, No Nodules or Sclerosis Neurological: Alert and Oriented x 3, NL Muscle Strength and Tone Result Diagrams: 09/29/19 05:48 10/03/19 05:05 Microbiology and Other Data: Microbiology 09/26/19 01:40 Urine Culture - Final Urine No Growth (<1,000 CFU/mL) Assess/Plan/Problems-Billing Assessment: 68W with afib on warfarin, HFpEF, presents with dyspnea and deconditioning, found with HF exacerbation. - Patient Problems (1) Acute on chronic congestive heart failure Comment: Likely acute on chronic diastolic CHF in the setting of med nonadherence. -euvolemic today - cont furosemide 20 mg po daily - spironolactone d/c'd (2) Anemia SNOMED Code(s): 708441924 Comment: Mixed of Iron deficiency and anemia chronic disease. - cont ferrous sulfate qd (3) Atrial fibrillation Comment: - rate controlled without medication - cont warfarin with INR goal 2-3 (4) DVT prophylaxis Comment: On warfarin for afib (5) Lymphedema Comment: - Continue KAMINI wraps and elevation. - Duiresis with lasix and reassess daily Status and Disposition: inpatient
[2019-10-04] MEDS ORDERED: Warfarin TAB(*) 5 MG PO ONE (17:00)
[2019-10-04] MEDS: Lidocaine Patch REMOVE* 1 NOTE MISC PATCH OFF SCH (20:01)
[2019-10-05] MEDS: Hydrocodone/Acetamin 10/325 1 TAB PO PRN ×3 (06:07→19:24)
[2019-10-05 06:19] LABS: Mean Platelet Volume 8.7 fL (7.4-10.4); Platelet Count 203 10^3/uL (150-450)
[2019-10-05 06:24] LABS: INR 2.91 (0.82-1.09)
[2019-10-05] MEDS: Cholecalciferol TAB* 1000 UNITS PO SCH (08:07)
[2019-10-05] MEDS: Furosemide TAB* 20 MG PO SCH (08:07)
[2019-10-05] MEDS: Lidocaine PATCH 5%* 1 PATCH TRANSDERM SCH (08:08)
[2019-10-05] MEDS: Famotidine TAB* 20 MG PO SCH (08:08)
[2019-10-05] MEDS: Ferrous Gluconate TAB* 324 MG TAB PO SCH (08:08)
[2019-10-05] MEDS: Multivitamins/Minerals TAB PO SCH ×2 (08:08→08:12)
[2019-10-05] MEDS: Nystatin TOP POWDER* 15 GM BTL TOPICAL SCH ×3 (08:14→19:39)
--- NOTE | 2019-10-05 09:28 | PN ---
Subjective Date of Service: 10/05/19 Interval History: Pt feels well, no new complaints Past Medical History: Unchanged from Admission Objective Active Medications: Acetaminophen (Tylenol Tab*) 650 mg PO Q4H PRN PRN Reason: PAIN Last Admin: 10/05/19 08:08 Dose: 650 mg Hydrocodone Bitart/Acetaminophen ([place] 10/325 (Nf)) 1 tab PO Q4H PRN PRN Reason: PAIN Last Admin: 10/05/19 06:07 Dose: 1 tab Cholecalciferol (Vitamin D Tab*) 2,000 units PO DAILY [facility] Last Admin: 10/05/19 08:07 Dose: 2,000 units Famotidine (Pepcid Tab*) 20 mg PO DAILY [facility]; Protocol Last Admin: 10/05/19 08:08 Dose: 20 mg Ferrous Gluconate (Fergon Tab*) 324 mg PO DAILY [facility] Last Admin: 10/05/19 08:08 Dose: 324 mg Furosemide (Lasix Tab*) 20 mg PO DAILY [facility] Last Admin: 10/05/19 08:07 Dose: 20 mg Lidocaine (Lidoderm 5% Patch*) 1 patch TRANSDERM DAILY [facility] Last Admin: 10/05/19 08:08 Dose: 1 patch Multivitamins/Minerals (Theragran/Minerals Tab*) 1 tab PO DAILY [facility] Last Admin: 10/05/19 08:12 Dose: Not Given Nystatin (Nystatin Top Powder*) 1 applic TOPICAL TID [facility] Last Admin: 10/05/19 08:14 Dose: 1 applic Pharmacy Profile Note (Lidocaine Patch Remove*) 1 note PATCH OFF 2100 [facility] Last Admin: 10/04/19 20:01 Dose: 1 note Pharmacy Profile Note (Coumadin Per Pharmacy*) 1 note FOLLOW UP .PER PHARMACY PROTOC [facility]; Protocol Temazepam (Restoril Cap*) 15 mg PO BEDTIME PRN PRN Reason: INSOMNIA Vital Signs - 8 hr 10/05/19 10/05/19 10/05/19 02:35 06:07 07:23 Temperature 98.4 F 98.1 F Pulse Rate 60 70 Respiratory 20 18 18 Rate Blood Pressure 131/60 123/54 (mmHg) O2 Sat by Pulse 96 97 Oximetry 10/05/19 08:07 Temperature Pulse Rate Respiratory 18 Rate Blood Pressure (mmHg) O2 Sat by Pulse Oximetry Oxygen Devices in Use Now: Nasal Cannula Appearance: 68 yo F in nAD, aAOx3 Eyes: No Scleral Icterus, PERRLA Ears/Nose/Mouth/Throat: NL Teeth, Lips, Gums, Mucous Membranes Moist Neck: NL Appearance and Movements; NL JVP, Trachea Midline Respiratory: Symmetrical Chest Expansion and Respiratory Effort Cardiovascular: - - irregular Abdominal: NL Sounds; No Tenderness; No Distention, No Hepatosplenomegaly Lymphatic: No Cervical Adenopathy Extremities: No Clubbing, Cyanosis, - - b/l LE's lymphoedema Skin: No Nodules or Sclerosis Neurological: Alert and Oriented x 3, NL Muscle Strength and Tone Result Diagrams: 10/05/19 06:04 10/03/19 05:05 Microbiology and Other Data: Microbiology 09/26/19 01:40 Urine Culture - Final Urine No Growth (<1,000 CFU/mL) Assess/Plan/Problems-Billing Assessment: 68W with afib on warfarin, HFpEF, presents with dyspnea and deconditioning, found with HF exacerbation. - Patient Problems (1) Acute on chronic congestive heart failure Comment: Likely acute on chronic diastolic CHF in the setting of med nonadherence. 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 - cont ferrous sulfate qd (3) Atrial fibrillation Comment: - rate controlled without medication - cont warfarin with INR goal 2-3 (4) DVT prophylaxis Comment: On warfarin for afib (5) Lymphedema Comment: - Continue KAMINI wraps and elevation. - Duiresis with lasix and reassess daily Status and Disposition: inpatient
[2019-10-05] MEDS ORDERED: hydrOXYzine HCL TAB* 25 MG ONE (19:18)
[2019-10-05] MEDS: hydrOXYzine HCL TAB* 25 MG PO PRN (19:20)
[2019-10-05] MEDS: Lidocaine Patch REMOVE* 1 NOTE MISC PATCH OFF SCH (19:42)
[2019-10-06] MEDS: Hydrocodone/Acetamin 10/325 1 TAB PO PRN ×4 (02:14→19:12)
[2019-10-06 06:09] LABS: Hematocrit 31 % (35-47); Hemoglobin 10.2 g/dL (12.0-16.0); Mean Platelet Volume 8.7 fL (7.4-10.4); Platelet Count 221 10^3/uL (150-450)
[2019-10-06 06:12] LABS: INR 2.54 (0.82-1.09)
[2019-10-06] MEDS: Famotidine TAB* 20 MG PO SCH (07:58)
[2019-10-06] MEDS: Cholecalciferol TAB* 1000 UNITS PO SCH (07:58)
[2019-10-06] MEDS: Nystatin TOP POWDER* 15 GM BTL TOPICAL SCH ×3 (07:59→20:24)
[2019-10-06] MEDS: Lidocaine PATCH 5%* 1 PATCH TRANSDERM SCH (07:59)
[2019-10-06] MEDS: Multivitamins/Minerals TAB PO SCH (07:59)
[2019-10-06] MEDS: Furosemide TAB* 20 MG PO SCH (07:59)
[2019-10-06] MEDS: Ferrous Gluconate TAB* 324 MG TAB PO SCH (07:59)
--- NOTE | 2019-10-06 12:48 | PN ---
Subjective Date of Service: 10/06/19 Interval History: Pt feels well. Had a "panic attack" last night, stated that she frequently gets anxious. she had been on Lexapro for it at home Past Medical History: Unchanged from Admission Objective Active Medications: Acetaminophen (Tylenol Tab*) 650 mg PO Q4H PRN PRN Reason: PAIN Last Admin: 10/05/19 08:08 Dose: 650 mg Hydrocodone Bitart/Acetaminophen ([place] 10/325 (Nf)) 1 tab PO Q4H PRN PRN Reason: PAIN Last Admin: 10/06/19 07:59 Dose: 1 tab Cholecalciferol (Vitamin D Tab*) 2,000 units PO DAILY [facility] Last Admin: 10/06/19 07:58 Dose: 2,000 units Famotidine (Pepcid Tab*) 20 mg PO DAILY [facility]; Protocol Last Admin: 10/06/19 07:58 Dose: 20 mg Ferrous Gluconate (Fergon Tab*) 324 mg PO DAILY [facility] Last Admin: 10/06/19 07:59 Dose: 324 mg Furosemide (Lasix Tab*) 20 mg PO DAILY [facility] Last Admin: 10/06/19 07:59 Dose: 20 mg Hydroxyzine HCl (Atarax Tab*) 25 mg PO ONCE PRN PRN Reason: ANXIETY Last Admin: 10/05/19 19:20 Dose: 25 mg Lidocaine (Lidoderm 5% Patch*) 1 patch TRANSDERM DAILY [facility] Last Admin: 10/06/19 07:59 Dose: 1 patch Multivitamins/Minerals (Theragran/Minerals Tab*) 1 tab PO DAILY [facility] Last Admin: 10/06/19 07:59 Dose: Not Given Nystatin (Nystatin Top Powder*) 1 applic TOPICAL TID [facility] Last Admin: 10/06/19 07:59 Dose: 1 applic Pharmacy Profile Note (Lidocaine Patch Remove*) 1 note PATCH OFF 2100 [facility] Last Admin: 10/05/19 19:42 Dose: 1 note Pharmacy Profile Note (Coumadin Per Pharmacy*) 1 note FOLLOW UP .PER PHARMACY PROTOC [facility]; Protocol Temazepam (Restoril Cap*) 15 mg PO BEDTIME PRN PRN Reason: INSOMNIA Vital Signs - 8 hr 10/06/19 07:59 Respiratory 20 Rate Oxygen Devices in Use Now: Nasal Cannula Appearance: 68 yo f in nAD, aAOx3 Eyes: No Scleral Icterus, PERRLA Ears/Nose/Mouth/Throat: NL Teeth, Lips, Gums, Mucous Membranes Moist Neck: NL Appearance and Movements; NL JVP, Trachea Midline Respiratory: Symmetrical Chest Expansion and Respiratory Effort, Clear to Auscultation Cardiovascular: NL Sounds; No Murmurs; No JVD, - - irregular Lymphatic: No Cervical Adenopathy Extremities: No Clubbing, Cyanosis, - - lymphoedema b/l Skin: No Nodules or Sclerosis Neurological: Alert and Oriented x 3, NL Muscle Strength and Tone Result Diagrams: 10/06/19 05:18 10/03/19 05:05 Microbiology and Other Data: Microbiology 09/26/19 01:40 Urine Culture - Final Urine No Growth (<1,000 CFU/mL) Assess/Plan/Problems-Billing Assessment: 68W with afib on warfarin, HFpEF, presents with dyspnea and deconditioning, found with HF exacerbation. - Patient Problems (1) Acute on chronic congestive heart failure Comment: Likely acute on chronic diastolic CHF in the setting of med nonadherence. 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 - cont ferrous sulfate qd (3) Atrial fibrillation Comment: - rate controlled without medication - cont warfarin with INR goal 2-3 (4) DVT prophylaxis Comment: On warfarin for afib (5) Lymphedema Comment: - Continue KAMINI wraps and elevation. - Duiresis with lasix and reassess daily Status and Disposition: inpatient medically ready to d/c awaiting STR
[2019-10-06] MEDS ORDERED: Escitalopram * 10 MG TAB PO ONE (16:00)
[2019-10-06] MEDS ORDERED: Warfarin TAB(*) 5 MG PO ONE (17:00)
[2019-10-06] MEDS: Lidocaine Patch REMOVE* 1 NOTE MISC PATCH OFF SCH (20:24)
[2019-10-07 06:22] LABS: INR 2.36 (0.82-1.09)
[2019-10-07] MEDS: Lidocaine PATCH 5%* 1 PATCH TRANSDERM SCH (07:46)
[2019-10-07] MEDS: Cholecalciferol TAB* 1000 UNITS PO SCH (07:47)
[2019-10-07] MEDS: Furosemide TAB* 20 MG PO SCH (07:47)
[2019-10-07] MEDS: Multivitamins/Minerals TAB PO SCH (07:47)
[2019-10-07] MEDS: Famotidine TAB* 20 MG PO SCH (07:47)
[2019-10-07] MEDS: Escitalopram * 10 MG TAB PO SCH (07:47)
[2019-10-07] MEDS: Ferrous Gluconate TAB* 324 MG TAB PO SCH (07:47)
[2019-10-07] MEDS: Hydrocodone/Acetamin 10/325 1 TAB PO PRN ×3 (07:52→21:24)
[2019-10-07] MEDS: Nystatin TOP POWDER* 15 GM BTL TOPICAL SCH ×3 (07:55→21:25)
[2019-10-07] MEDS: hydrOXYzine HCL TAB* 25 MG PO PRN (14:10)
--- NOTE | 2019-10-07 14:14 | PN ---
Subjective Date of Service: 10/07/19 Interval History: Pt feels well, c/o SOB earlier on , but resolved. When it was suggested that we may need to increase Lasix, pt was not interested since she is urinating "a lot " already Past Medical History: Unchanged from Admission Objective Active Medications: Acetaminophen (Tylenol Tab*) 650 mg PO Q4H PRN PRN Reason: PAIN Last Admin: 10/05/19 08:08 Dose: 650 mg Hydrocodone Bitart/Acetaminophen ([place] 10/325 (Nf)) 1 tab PO Q4H PRN PRN Reason: PAIN Last Admin: 10/07/19 07:52 Dose: 1 tab Cholecalciferol (Vitamin D Tab*) 2,000 units PO DAILY [facility] Last Admin: 10/07/19 07:47 Dose: 2,000 units Escitalopram Oxalate (Lexapro *) 10 mg PO DAILY [facility] Last Admin: 10/07/19 07:47 Dose: 10 mg Famotidine (Pepcid Tab*) 20 mg PO DAILY [facility]; Protocol Last Admin: 10/07/19 07:47 Dose: 20 mg Ferrous Gluconate (Fergon Tab*) 324 mg PO DAILY [facility] Last Admin: 10/07/19 07:47 Dose: 324 mg Furosemide (Lasix Tab*) 20 mg PO DAILY [facility] Last Admin: 10/07/19 07:47 Dose: 20 mg Hydroxyzine HCl (Atarax Tab*) 25 mg PO ONCE PRN PRN Reason: ANXIETY Last Admin: 10/05/19 19:20 Dose: 25 mg Lidocaine (Lidoderm 5% Patch*) 1 patch TRANSDERM DAILY [facility] Last Admin: 10/07/19 07:46 Dose: 1 patch Multivitamins/Minerals (Theragran/Minerals Tab*) 1 tab PO DAILY [facility] Last Admin: 10/07/19 07:47 Dose: 1 tab Nystatin (Nystatin Top Powder*) 1 applic TOPICAL TID [facility] Last Admin: 10/07/19 07:55 Dose: 1 applic Pharmacy Profile Note (Lidocaine Patch Remove*) 1 note PATCH OFF 2100 [facility] Last Admin: 10/06/19 20:24 Dose: 1 note Pharmacy Profile Note (Coumadin Per Pharmacy*) 1 note FOLLOW UP .PER PHARMACY PROTOC [facility]; Protocol Temazepam (Restoril Cap*) 15 mg PO BEDTIME PRN PRN Reason: INSOMNIA Warfarin Sodium (Coumadin Tab(*)) 5 mg PO 1700 [facility] Stop: 10/08/19 17:01 Vital Signs - 8 hr 10/07/19 10/07/19 10/07/19 07:15 07:21 07:52 Temperature 98.5 F Pulse Rate 79 Respiratory 20 20 20 Rate Blood Pressure 113/70 (mmHg) O2 Sat by Pulse 95 Oximetry 10/07/19 10/07/19 08:48 11:28 Temperature 98.6 F Pulse Rate 72 Respiratory 20 20 Rate Blood Pressure 108/70 (mmHg) O2 Sat by Pulse 95 Oximetry Oxygen Devices in Use Now: Nasal Cannula Appearance: 68 yo F in nAD, AAOx3 Eyes: No Scleral Icterus, PERRLA Ears/Nose/Mouth/Throat: NL Teeth, Lips, Gums, Mucous Membranes Moist Neck: NL Appearance and Movements; NL JVP, Trachea Midline Respiratory: Symmetrical Chest Expansion and Respiratory Effort, - - wheezes at b/l bases Cardiovascular: - - irregular Abdominal: NL Sounds; No Tenderness; No Distention, No Hepatosplenomegaly Lymphatic: No Cervical Adenopathy Extremities: No Clubbing, Cyanosis, - - b/l LE's lymphoedema-distal LE's covered with KAMINI bandages Skin: No Nodules or Sclerosis Neurological: Alert and Oriented x 3, NL Muscle Strength and Tone Result Diagrams: 10/06/19 05:18 10/03/19 05:05 Microbiology and Other Data: Microbiology 09/26/19 01:40 Urine Culture - Final Urine No Growth (<1,000 CFU/mL) Assess/Plan/Problems-Billing Assessment: 68W with afib on warfarin, HFpEF, presents with dyspnea and deconditioning, found with HF exacerbation. - Patient Problems (1) Acute on chronic congestive heart failure Comment: Likely acute on chronic diastolic CHF in the setting of med nonadherence. 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 - cont ferrous sulfate qd (3) Atrial fibrillation Comment: - rate controlled without medication - cont warfarin with INR goal 2-3 (4) DVT prophylaxis Comment: On warfarin for afib (INR 2.3 today) (5) Lymphedema Comment: - Continue KAMINI wraps and elevation. - Duiresis with lasix and reassess daily Status and Disposition: inpatient medically ready to d/c awaiting STR
[2019-10-07] MEDS ORDERED: Albuterol/Ipratropium NEB.SOL* Albuterol 2.5 MG/Ipratropium 0.5 MG 3 ML INH PRN (14:15)
[2019-10-07] MEDS: Warfarin TAB(*) 5 MG PO SCH (17:57)
[2019-10-07] MEDS: Lidocaine Patch REMOVE* 1 NOTE MISC PATCH OFF SCH (21:26)
[2019-10-08] MEDS: Hydrocodone/Acetamin 10/325 1 TAB PO PRN ×5 (02:05→21:20)
[2019-10-08] MEDS: Cholecalciferol TAB* 1000 UNITS PO SCH (09:12)
[2019-10-08] MEDS: Ferrous Gluconate TAB* 324 MG TAB PO SCH (09:13)
[2019-10-08] MEDS: Famotidine TAB* 20 MG PO SCH (09:13)
[2019-10-08] MEDS: Furosemide TAB* 20 MG PO SCH (09:14)
[2019-10-08] MEDS: Escitalopram * 10 MG TAB PO SCH (09:14)
[2019-10-08] MEDS: Multivitamins/Minerals TAB PO SCH (09:16)
[2019-10-08] MEDS: Nystatin TOP POWDER* 15 GM BTL TOPICAL SCH ×3 (09:17→20:45)
[2019-10-08] MEDS: Lidocaine PATCH 5%* 1 PATCH TRANSDERM SCH (09:17)
[2019-10-08] MEDS ORDERED: hydrOXYzine HCL TAB* 25 MG PO PRN (10:24)
--- NOTE | 2019-10-08 15:33 | PN ---
Subjective Date of Service: 10/08/19 Interval History: Likes to wear oxygen when she is not hypoxic. Reports she can take deep breaths better when wearing No other complaints Objective Active Medications: Acetaminophen (Tylenol Tab*) 650 mg PO Q4H PRN PRN Reason: PAIN Last Admin: 10/05/19 08:08 Dose: 650 mg Hydrocodone Bitart/Acetaminophen ([place] 10/325 (Nf)) 1 tab PO Q4H PRN PRN Reason: PAIN - SEVERE Last Admin: 10/08/19 13:19 Dose: 1 tab Albuterol/Ipratropium (Duoneb (Albuterol 2.5 Mg/Ipratropium 0.5 Mg)) 1 neb INH Q4H PRN PRN Reason: SOB/WHEEZING Cholecalciferol (Vitamin D Tab*) 2,000 units PO DAILY [facility] Last Admin: 10/08/19 09:12 Dose: 2,000 units Escitalopram Oxalate (Lexapro *) 10 mg PO DAILY [facility] Last Admin: 10/08/19 09:14 Dose: 10 mg Famotidine (Pepcid Tab*) 20 mg PO DAILY [facility]; Protocol Last Admin: 10/08/19 09:13 Dose: 20 mg Ferrous Gluconate (Fergon Tab*) 324 mg PO DAILY [facility] Last Admin: 10/08/19 09:13 Dose: 324 mg Furosemide (Lasix Tab*) 20 mg PO DAILY [facility] Last Admin: 10/08/19 09:14 Dose: 20 mg Hydroxyzine HCl (Atarax Tab*) 25 mg PO Q24H PRN PRN Reason: ANXIETY Lidocaine (Lidoderm 5% Patch*) 1 patch TRANSDERM DAILY [facility] Last Admin: 10/08/19 09:17 Dose: 1 patch Multivitamins/Minerals (Theragran/Minerals Tab*) 1 tab PO DAILY [facility] Last Admin: 10/08/19 09:16 Dose: Not Given Nystatin (Nystatin Top Powder*) 1 applic TOPICAL TID [facility] Last Admin: 10/08/19 13:20 Dose: 1 applic Pharmacy Profile Note (Lidocaine Patch Remove*) 1 note PATCH OFF 2100 [facility] Last Admin: 10/07/19 21:26 Dose: 1 note Pharmacy Profile Note (Coumadin Per Pharmacy*) 1 note FOLLOW UP .PER PHARMACY PROTOC [facility]; Protocol Temazepam (Restoril Cap*) 15 mg PO BEDTIME PRN PRN Reason: INSOMNIA Warfarin Sodium (Coumadin Tab(*)) 5 mg PO 1700 [facility] Stop: 10/08/19 17:01 Last Admin: 10/07/19 17:57 Dose: 5 mg Vital Signs - 8 hr 10/08/19 10/08/19 10/08/19 08:00 08:03 09:15 Temperature 97.5 F Pulse Rate 78 Respiratory 18 18 16 Rate Blood Pressure 127/63 (mmHg) O2 Sat by Pulse 100 Oximetry 10/08/19 10/08/19 10/08/19 11:33 11:46 13:19 Temperature 97.3 F Pulse Rate 58 Respiratory 18 20 20 Rate Blood Pressure 124/58 (mmHg) O2 Sat by Pulse 99 Oximetry Oxygen Devices in Use Now: Nasal Cannula - 0.5 L Appearance: NAD Eyes: No Scleral Icterus, PERRLA Ears/Nose/Mouth/Throat: NL Teeth, Lips, Gums, Clear Oropharnyx Neck: NL Appearance and Movements; NL JVP Respiratory: Symmetrical Chest Expansion and Respiratory Effort, Clear to Auscultation Cardiovascular: - - early 2/6 [place]EL[place] Abdominal: NL Sounds; No Tenderness; No Distention, No Hepatosplenomegaly Lymphatic: - - b/l lymphedema pitting Neurological: Alert and Oriented x 3 Result Diagrams: 10/06/19 05:18 10/03/19 05:05 Microbiology and Other Data: Microbiology 09/26/19 01:40 Urine Culture - Final Urine No Growth (<1,000 CFU/mL) Assess/Plan/Problems-Billing Assessment: 68W with afib on warfarin, HFpEF, presents with dyspnea and deconditioning, found with HF exacerbation. - Patient Problems (1) Acute on chronic congestive heart failure Comment: -resolved Likely acute on chronic diastolic CHF in the setting of med nonadherence. 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 - cont ferrous sulfate qd (3) Atrial fibrillation Comment: - rate controlled without medication - cont warfarin with INR goal 2-3 (4) Lymphedema Comment: - Continue KAMINI wraps and elevation. - Duiresis with lasix and reassess daily (5) DVT prophylaxis Priority: High Comment: coumadin Status and Disposition: inpatient medically ready to d/c awaiting STR
[2019-10-08] MEDS: Warfarin TAB(*) 5 MG PO SCH (17:21)
[2019-10-08] MEDS: Lidocaine Patch REMOVE* 1 NOTE MISC PATCH OFF SCH (20:44)
[2019-10-09] MEDS: Hydrocodone/Acetamin 10/325 1 TAB PO PRN ×4 (01:20→14:23)
[2019-10-09 06:57] LABS: INR 2.75 (0.82-1.09)
[2019-10-09] MEDS: Escitalopram * 10 MG TAB PO SCH (08:24)
[2019-10-09] MEDS: Furosemide TAB* 20 MG PO SCH (08:24)
[2019-10-09] MEDS: Ferrous Gluconate TAB* 324 MG TAB PO SCH (08:24)
[2019-10-09] MEDS: Multivitamins/Minerals TAB PO SCH (08:24)
[2019-10-09] MEDS: Cholecalciferol TAB* 1000 UNITS PO SCH (08:25)
[2019-10-09] MEDS: Famotidine TAB* 20 MG PO SCH (08:25)
[2019-10-09] MEDS: Lidocaine PATCH 5%* 1 PATCH TRANSDERM SCH (08:27)
[2019-10-09] MEDS: Nystatin TOP POWDER* 15 GM BTL TOPICAL SCH ×2 (08:28→13:58)
--- NOTE | 2019-10-09 13:23 | DS ---
CC: Dr. Keily Felix * DISCHARGE SUMMARY: DATE OF ADMISSION: 09/26/19 DATE OF DISCHARGE: 10/09/19 PRIMARY CARE PROVIDER: Dr. Keily Felix. DISPOSITION AT DISCHARGE: [place]. CONDITION ON DISCHARGE: Good. MEDICATIONS AT DISCHARGE: Include, 1. Hydrocodone/acetaminophen 10/325 every 4 hours, max daily dose 6 tabs. 2. Ranitidine 150 mg 1 tab daily as needed. 3. Temazepam 15 mg at bedtime as needed for sleep. 4. Lidocaine patch transdermally daily. 5. Glycerin laxative 2 g per rectum daily for constipation as needed. 6. Lasix 20 mg daily. 7. Ferrous gluconate 325 mg daily. 8. Hydroxyzine 25 mg daily every 24 hours as needed for anxiety. 9. Coumadin 5 mg daily. Adjust dose for INR between 2 and 3. 10. Topical nystatin powder 3 times a day to the affected areas, largely under her pannus and breasts. 11. Multivitamin 1 tab daily. 12. Escitalopram 10 mg daily. 13. Cholecalciferol 2000 units daily. PRIMARY DIAGNOSIS: Includes acute decompensated heart failure exacerbation, primarily diastolic. SECONDARY DIAGNOSES: Include, 1. Atrial fibrillation. 2. Iron deficiency anemia. 3. Anxiety. 4. Lower extremity lymphedema. 5. Anemia. PERTINENT LABORATORY DATA: INR on the day of discharge is 2.75. Hemoglobin 10.2. BUN 19, creatinine 0.93. PERTINENT IMAGING: Transthoracic echocardiogram, impression: LV cavity size is normal. Wall thickness is mildly increased. Systolic function is normal. EF 55% to 60%. Right ventricular cavity is dilated and dysfunctional. Off- axis imaging makes qualitative estimation difficult. Ventricular septum, there is mild septal flattening of the interventricular septum, most likely consistent with RV volume overload or pressure overload. Left atrium is dilated. No hemodynamically significant valvular abnormalities noted. Mild pulmonary hypertension, could be underestimated, i.e., may be worse and this is a technically difficult study. Chest x-ray on the day of admission, 09/26/19, findings suggestive of congestive heart failure. HISTORY OF PRESENT ILLNESS AND HOSPITAL COURSE: This is a 68-year-old female with past medical history as outlined in the history of present illness on the day of admission including atrial fibrillation and CHF, transferred with acute hypoxic respiratory failure, thought in the setting of decompensated heart failure exacerbation, likely diastolic. The patient was diuresed using Lasix during the course of her hospital stay with improvement in her breathing, although on the day of discharge she still required half of a liter of oxygen nasal cannula to treat anxiety. Of note, the patient was tested off of oxygen, was made 100% on room air; however, indicated that she could not take deep breaths. Initially, she could not tell whether the oxygen was on or off. We did discuss that the oxygen was for anxiety and that I would leave to [place] the decision to discuss with her to continue or not as I would not recommend continuing oxygen in the hospital. There were no complications during the course of the hospital stay. The patient's lower extremities were maintained wrapped in Sean bandages for her lower extremity lymphedema. The patient's Coumadin was dosed to maintain INR between 2 and 3. Continue to follow and dose as needed. At followup, please; 1. Repeat INR in 2 to 3 days. Adjust Coumadin dosing to achieve INR between 2 and 3 for atrial fibrillation. 2. Continue to wrap lower extremities for lymphedema. 3. Maintain patient in euvolemia. May need additional doses of Lasix for increased weight and/or shortness of breath. 4. No other specific labs or vitals that need followup. TIME SPENT: Greater than 60 minutes was spent on the discharge of this patient ; greater than half of that spent [id number] with patient. [id number]/[facility] #: [id number] [facility]
[2019-10-09 15:23] VITALS: BP 123/70
[2019-10-09] MEDS ORDERED: Warfarin TAB(*) 5 MG PO SCH (17:00)
== END 2019-10-09 15:30 | DRG 291 ==
LOC: MEDTELE 09-26 00:02 → MED 10-02 12:49
PROVIDERS: ADMIT Student in an Organized Health Care Education/Training Program; ATTEND Internal Medicine
DX: I50.33 Acute on chronic diastolic (congestive) heart failure (principal); J96.01 Acute respiratory failure with hypoxia; E66.2 Morbid (severe) obesity with alveolar hypoventilation; Z68.44 Body mass index [BMI] 60.0-69.9, adult; D68.32 Hemorrhagic disorder due to extrinsic circulating anticoagulants; I48.91 Unspecified atrial fibrillation; T45.515A Adverse effect of anticoagulants, initial encounter; I89.0 Lymphedema, not elsewhere classified; E55.9 Vitamin D deficiency, unspecified; D50.9 Iron deficiency anemia, unspecified; I27.20 Pulmonary hypertension, unspecified; D63.8 Anemia in other chronic diseases classified elsewhere; Z87.891 Personal history of nicotine dependence; Y92.9 Unspecified place or not applicable; Z91.14 Patient's other noncompliance with medication regimen; Z79.899 Other long term (current) drug therapy; Z79.01 Long term (current) use of anticoagulants
CPT/HCPCS: 36415; 71045; 80048; 81003; 81015; 82306; 82607; 82746; 83540; 83550; 83735; 83880; 84100; 84252; 84443; 85014; 85018; 85025; 85049; 85610; 86140; 87086; 93005; 93306; A9270-GY; G8978-GP-CN; G8979-GP-CK; J1940; J3475